=== PATIENT | female | born 1975 | race Two or more races ===

== ENCOUNTER 2023-07-25 13:50 | Outpatient (AMB) | payer MEDICARE, MEDICAID, SELFPAY ==
--- NOTE | 2023-07-25 14:05 | MHC.OFFWIV ---
Intake Vital Signs 07/25/23 14:15 Height 5 ft 1 in Weight 156 lb BMI 29.5 BP 124/78 Blood Pressure Location Lt brachial Position Sitting Pulse 80 Pulse Source Pulse Oximeter Temp 97.8 F Temp Source Temporal Artery Scan Pulse Oximetry (%) 99 Oxygen Delivery Method Room Air Intake Visit Reasons: R[employer] facial allergic reaction headache Intake Note: pt is here today for facial allergic reaction headache started Patient Tobacco Use Status: Never used Tobacco Allergies No Known Allergies Allergy (Verified 07/25/23 14:17) Do you need a note to return to daycare/school/sports/work: No HPI HPI Comments History of Present Illness Details This is a 47-year-old female who presents to the office with right-sided facial swelling x1 day. Patient states she has a history of severe environmental allergies. 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 The patient took some diphenhydramine with moderate relief of her symptoms but she continues to have persistent right-sided facial swelling today. She denies any trouble swallowing, throat swelling, difficulty breathing, chest tightness, or wheezing. REPLACED BY [facility] Social History Patient Tobacco Use Status: Never used Tobacco Review of Systems Const All systems reviewed & are unremarkable except as noted in HPI and below Reports no additional complaints Eyes Reports no additional complaints ENT Reports no additional complaints Card Reports no additional complaints Resp Reports no additional complaints GI Reports no additional complaints Reports no additional complaints Musc Reports no additional complaints Skin/Breast Reports system reviewed and no additional complaints, except as documented Neuro Reports no additional complaints Psych Reports no additional complaints Endo Reports no additional complaints Jaiden/Lymph Reports no additional complaints Aller/Immun Reports no additional complaints Physical Exam Vital Signs: Last Vital Signs Temp 97.8 F 07/25/23 14:15 Pulse 80 07/25/23 14:15 BP 124/78 07/25/23 14:15 Pulse Ox 99 07/25/23 14:15 Oxygen Delivery Method Room Air 07/25/23 14:15 BMI result Body Mass Index 29.5 Const Other: Vital signs reviewed. Constitutional: Non-toxic appearing. No acute distress. Well-developed and well-nourished. HEENT: There is mild swelling of the right periorbital region and right cheek without erythema or urticaria. Normocephalic and atraumatic. No evidence of gingivitis/dental abscess. Skin: Warm and dry. No rashes or lesions noted. Neck: Full and painless range of motion. No cervical lymphadenopathy. Cardio: Regular rate and rhythm. No murmurs, gallops, or rubs. No lower extremity edema. No JVD. Pulmonary: No respiratory distress. No accessory muscle usage. Clear to auscultation bilaterally without wheezing, crackles, or rhonchi. No stridor. Gastrointestinal: Soft, nontender, and nondistended in all 4 quadrants. Musculoskeletal: Normal range of motion in joints throughout the body. No deformity or other signs of injury. Neuro: Alert and oriented x4. Cranial nerves 2-12 grossly intact. No focal deficits appreciated. Psych: Normal mood and affect. Assessment & Plan Assessment & Plan (1) Allergic reaction: Code(s): T78.40XA - Allergy, unspecified, initial encounter Qualifiers: Encounter type: initial encounter Qualified Code(s): T78.40XA - Allergy, unspecified, initial encounter Plan: This is a 47-year-old female presenting to the office complaining of right-sided facial/periorbital swelling secondary to an allergic reaction. Patient has a history of environmental allergies and she is on multiple allergy medications but she started to develop right periorbital/cheek swelling, which improved with diphenhydramine but has not completely resolved. Patient has no sign of an anaphylactic reaction. She has no erythema of the area to suggest periorbital cellulitis. She has no evidence of gingivitis, dental abscess, or other dental issue to explain her facial swelling. The patient very likely has a mild allergic reaction to an unknown trigger. Patient was given a prescription for p.o. prednisone 40 mg daily x5 days as well as p.o. hydroxyzine 50 mg 3 times daily as needed for allergies. She was instructed to continue her daily antihistamines such as fexofenadine or loratadine. Patient was advised to proceed to the emergency room if she were to develop any signs or symptoms of anaphylaxis. Patient verbalizes her understanding and she is in agreement with the plan. Coding Level of Care Code New Pt Level 3 (83044) Diagnoses Allergic reaction, initial encounter T78.40XA Encounter type: initial encounter
[2023-07-25 14:15] VITALS: BP 124/78; PULSE 80; TEMP 36.6; O2SAT 99; BMI 29.5
== END 2023-07-25 16:10 | disposition home or self-care (01) ==
PROVIDERS: Visit Provider Physician Assistant Medical
DX: T78.40XA Allergy, unspecified, initial encounter (principal)
CPT/HCPCS: 99203

== ENCOUNTER 2023-11-25 15:22 | Outpatient (AMB) | payer MEDICARE, MEDICAID, SELFPAY ==
[2023-11-25 15:24] VITALS: BP 122/76; PULSE 86; TEMP 37.3; O2SAT 98
--- NOTE | 2023-11-25 15:24 | MHC.OFFWIV ---
Intake Vital Signs 11/25/23 15:24 Height 5 ft 1 in BP 122/76 Blood Pressure Location Rt brachial Position Sitting Pulse 86 Pulse Source Pulse Oximeter Temp 99.1 F Temp Source Oral Pulse Oximetry (%) 98 Oxygen Delivery Method Room Air Intake Visit Reasons: EP cough chest pain Intake Note: pt is here for cough, difficulty breathing due to emphysema, and asthma Patient Tobacco Use Status: Never used Tobacco Allergies No Known Allergies Allergy (Verified 11/25/23 15:25) Do you need a note to return to daycare/school/sports/work: No HPI EP cough chest pain HPI Details Patient presents for 2 days of increased coughing at night. She has emphysema at baseline which she sees pulmonology for. She notes she has been quite stable with rare use of albuterol no other medications except allergy medications. She has been wearing a mask throughout this pollen season to help protect herself. She denies fever chills productive cough nasal congestion or other symptoms of illness. She notes the cough is worse in the morning and at night. The coughing leads to chest discomfort. COUNTS INCLUDE 234 BEDS AT THE [facility] Social History Patient Tobacco Use Status: Never used Tobacco Review of Systems Const Reports as per HPI and Reports no additional complaints ENT Reports no additional complaints and Reports as per HPI Card Reports as per HPI and Reports no additional complaints Resp Reports as per HPI and Reports no additional complaints Neuro Reports no additional complaints and Reports as per HPI Physical Exam Vital Signs: Last Vital Signs Temp 99.1 F 11/25/23 15:24 Pulse 86 11/25/23 15:24 BP 122/76 11/25/23 15:24 Pulse Ox 98 11/25/23 15:24 Oxygen Delivery Method Room Air 11/25/23 15:24 Const General: cooperative, comfortable and no acute distress Orientation/consciousness: patient oriented x3 HEENT Ears: external ears normal and TM's normal bilaterally General nose exam: Normal external nose present and Normal nasal mucous membranes and turbinates present Face and sinus: Yes sinuses nontender Mouth: oropharynx normal Throat: Yes posterior oropharynx normal Neck Neck: Yes no lymphadenopathy Resp Effort & Inspection: normal respiratory effort Auscultation: clear to auscultation bilaterally Cardio Rate: regular rate Rhythm: regular rhythm Heart sounds: S1 normal heart sound present and S2 normal heart sound present Neuro General: patient oriented x3 Extrem General: Yes no pedal edema Assessment & Plan Assessment & Plan (1) Acute exacerbation of emphysema: Code(s): J43.9 - Emphysema, unspecified Plan: Will treat with a short course of prednisone. Refill albuterol. Return to clinic if symptoms do not improve or consider follow-up with pulmonology sooner as she may need long-acting inhaler. Medications: New albuterol sulfate 90 mcg/actuation (ProAir HFA) 1 inh inhalation Q4-6H PRN 6.7 grams 0RF shortness of breath or wheezing prednisone 20 mg PO DAILY 5 days 5 tabs 0RF Coding Level of Care Code Est Pt Level 3 (20889) Diagnoses Acute exacerbation of emphysema J43.9
== END 2023-11-25 15:41 | disposition home or self-care (01) ==
PROVIDERS: Visit Provider Physician Assistant
DX: J43.9 Emphysema, unspecified (principal)
CPT/HCPCS: 99213

== ENCOUNTER 2023-12-19 12:31 | Outpatient (AMB) | payer MEDICARE, MEDICAID, SELFPAY ==
--- NOTE | 2023-12-19 12:55 | MHC.OFFWIV ---
Intake Vital Signs 12/19/23 12:56 Height 5 ft 1 in Weight 153 lb BMI 28.9 BP 118/74 Blood Pressure Location Lt brachial Position Sitting Pulse 63 Pulse Source Pulse Oximeter Temp 98.4 F Temp Source Oral Pulse Oximetry (%) 98 Oxygen Delivery Method Room Air Intake Visit Reasons: EP ?Allergy Intake Note: pt is here c/o ? allergic reaction. Unknown cause Patient Tobacco Use Status: Never used Tobacco Allergies No Known Allergies Allergy (Verified 12/19/23 12:56) Do you need a note to return to daycare/school/sports/work: No HPI HPI Comments History of Present Illness Details Patient is a 48-year-old female complaining clear watery eye discharge and swelling underneath her eye, it started under her left eye yesterday and seems to be better today but now she is having the same issue with her right eye. She denies any changes in her vision, ear pain, throat pain, cough or fevers. She denies any new soaps, moisturizers or sunscreen. She states she did take some Benadryl yesterday that seemed to help the left eye. She also states she takes a Zyrtec in the morning and cetirizine at night, these are prescribed to her by her park aide as she has emphysema. She denies any feelings of her throat closing up or tickling in the back of her throat [facility] Social History Patient Tobacco Use Status: Never used Tobacco Review of Systems Const All systems reviewed & are unremarkable except as noted in HPI and below Physical Exam Vital Signs: Last Vital Signs Temp 98.4 F 12/19/23 12:56 Pulse 63 12/19/23 12:56 BP 118/74 12/19/23 12:56 Pulse Ox 98 12/19/23 12:56 Oxygen Delivery Method Room Air 12/19/23 12:56 BMI result Body Mass Index 28.9 Const General: cooperative, healthy appearing, comfortable and no acute distress Orientation/consciousness: patient oriented x3 Limitations: no limitations HEENT Head: Yes normal to inspection Ears: external ears normal General nose exam: Normal external nose present, Normal nares present and No nasal discharge present Face and sinus: Yes sinus tenderness (Right-sided maxillary, slight swelling) Mouth: Normal oral and palatal mucosa present, lip normal, tongue normal and moist mucous membranes Throat: Yes posterior oropharynx normal, Yes tonsils normal and Yes uvula midline Eyes Eyelids: Yes eyelids normal Conjunctivae: conjunctivae normal Sclerae: sclerae normal Corneas: corneas normal Pupils: Equal, round and reactive pupils present and Pupils normal by confrontation EOM: EOMs intact bilaterally Neck Neck: Yes normal visual inspection Resp Effort & Inspection: normal respiratory effort and able to speak in complete sentences Skin General skin exam: no rashes or lesions noted Neuro General: patient oriented x3 Cranial nerves: Yes Equal, round and reactive pupils present Extrem General: Yes normal to inspection and Yes no clubbing, cyanosis or edema Assessment & Plan Assessment & Plan (1) Allergic conjunctivitis: Code(s): H10.10 - Acute atopic conjunctivitis, unspecified eye Qualifiers: Laterality: right Qualified Code(s): H10.11 - Acute atopic conjunctivitis, right eye Plan: Recommended Betadine drops and Flonase, gave instruction on how to use Flonase properly. Recommended using Benadryl if she thinks it helps. Advised if she has any tickling in the back of her throat or feelings like her throat is closing up, to go to the emergency department or call 911 immediately. Plan see above Coding Level of Care Code New Pt Level 3 (88746) Diagnoses Allergic conjunctivitis of right eye H10.11 Laterality: right
[2023-12-19 12:56] VITALS: BP 118/74; PULSE 63; TEMP 36.9; O2SAT 98; BMI 28.9
== END 2023-12-19 14:02 | disposition home or self-care (01) ==
PROVIDERS: PCP Internal Medicine; Visit Provider Physician Assistant
DX: H10.11 Acute atopic conjunctivitis, right eye (principal)
CPT/HCPCS: 99203; 99213

== ENCOUNTER 2024-09-18 11:50 | Outpatient (AMB) | payer MEDICARE, MEDICAID, SELFPAY ==
[2024-09-18 11:56] VITALS: BP 100/80; PULSE 76; RESP 16; TEMP 36.8; O2SAT 98; BMI 28.5
--- NOTE | 2024-09-18 11:56 | MHC.OFFWIV ---
Intake Vital Signs 09/18/24 11:56 Height 5 ft 1 in Weight 151 lb BMI 28.5 BP 100/80 Blood Pressure Location Lt brachial Position Sitting Respiration 16 Pulse 76 Pulse Source Pulse Oximeter Temp 98.2 F Temp Source Oral Pulse Oximetry (%) 98 Oxygen Delivery Method Room Air Intake Visit Reasons: EP-Lt ankle pain and swollen Intake Note: Pt is here today c/o Lt ankle pain and swollen: Pt states twisted ankle 3weeks ago: no improvement Patient Tobacco Use Status: Never used Tobacco Allergies No Known Allergies Allergy (Verified 09/18/24 12:16) Medication List - Last Reconciled 09/18/24 by Fidelia Bertrand, [facility]- albuterol sulfate 90 mcg/actuation 1 inh inhalation QID albuterol sulfate 90 mcg/actuation (ProAir HFA) 1 inh inhalation Q4-6H PRN budesonide 90 mcg/actuation (Pulmicort Flexhaler) 2 inhalations inhalation BID cetirizine (All Day Allergy (cetirizine)) 10 mg PO DAILY montelukast 10 mg PO DAILY HPI HPI Comments History of Present Illness Details History - The patient is a 49-year-old female presenting with left ankle pain and swelling. - The patient sustained a left ankle sprain three weeks ago without any improvement. - No x-ray was conducted post-injury as she presumed it a minor twist. - She describes audible popping at the time of injury and localized pain. - Reports increased stiffness and discomfort after periods of rest, such as after sleeping. - Avoidance of analgesics noted in recent days with no current use of anti-inflammatory medications. - Patient observes no other symptoms such as foot involvement beyond the localized ankle issues. Discussion Notes During the visit, I discussed with the patient the current status of her left ankle sprain, which remains painful and swollen three weeks post-injury. I advised an x-ray to assess for any fractures or complications not initially apparent. We discussed the options for managing discomfort and swelling, including using an Antonio wrap or a supportive boot for stabilization. I also recommended a referral to an insurance marketing specialist to evaluate ongoing pain and lack of improvement. I explained the radiology department's timing and the plan for immediate management with a walking boot until further diagnostic imaging could be obtained. Instructions were provided for follow-up post-x-ray to determine further treatment steps, including possible physical therapy or specialist care. Assessment and Plan 1. Left ankle sprain: The patient is recommended for an x-ray to exclude fractures or complications. A walking boot will be provided to aid in stabilization and pain relief. An insurance marketing specialist referral is advised for continued issues. Monitoring post-x-ray results will guide further treatment, potentially including physical therapy. She will be contacted w/ Xray results once available. Patient Instructions - Use a walking boot as directed for left ankle stabilization. - Avoid prolonged weight-bearing activities without the boot. - Follow up with radiology for the x-ray at the scheduled time. - Await contact regarding x-ray results and further instructions. - Seek immediate care if symptoms significantly worsen or new symptoms arise. Consent Patient was informed and verbally consented to the use of an ambient scribe for clinic note documentation during this visit. [facility] Social History Patient Tobacco Use Status: Never used Tobacco Physical Exam Vital Signs: Last Vital Signs Temp 98.2 F 09/18/24 11:56 Pulse 76 09/18/24 11:56 Resp 16 09/18/24 11:56 BP 100/80 09/18/24 11:56 Pulse Ox 98 09/18/24 11:56 Oxygen Delivery Method Room Air 09/18/24 11:56 BMI result Body Mass Index 28.5 Extrem Other: Left ankle: + PP, no erythema or excessive warmth to joint; antalgic gait favoring L ankle, skin intact Left lower extremity: ankle (Left ) Details: tenderness Location: of the lateral malleolus, of the anterior talofibular ligament and anterolaterally, swelling Details: laterally and anteriorly and abnormal ROM Details: pain with active ROM Details: with plantar flexion, with inversion and with eversion and pain with passive ROM Details: with plantar flexion, with dorsiflexion, with inversion and with eversion Assessment & Plan Assessment & Plan (1) Pain and swelling of left ankle: Code(s): M25.572 - Pain in left ankle and joints of left foot; M25.472 - Effusion, left ankle Plan: . Plan . Orders: Orders XR ankle LT min 3V Today M25.472 - Effusion, left ankle, M25.572 - Pain in left ankle and joints of left foot Referrals Orthopedics Referral M25.472 - Effusion, left ankle, M25.572 - Pain in left ankle and joints of left foot Coding Level of Care Code Est Pt Level 4 (21179) Diagnoses Pain and swelling of left ankle M25.572; M25.472
== END 2024-09-18 12:48 | disposition home or self-care (01) ==
LOC: HO.HMCWIC 11:50
PROVIDERS: PCP Internal Medicine; Visit Provider Nurse Practitioner Family
DX: M25.572 Pain in left ankle and joints of left foot (principal); M25.472 Effusion, left ankle

== ENCOUNTER 2024-09-18 11:50 | Outpatient (REF) | payer MEDICARE, MEDICAID, SELFPAY ==
--- NOTE | ~2024-09-18 | XR_ITS ---
CLINICAL HISTORY: M25.572 - Pain in left ankle and joints of left foot 3 view left ankle Comparison: None Findings: No acute fractures or dislocations. No significant arthritic change or erosions. No ankle effusion. No radiopaque foreign body. IMPRESSION: 1. Lateral soft tissue swelling. 2. No acute fracture or dislocation. This document has been electronically signed by: Karena Christianson DO on 09/18/2024 13:51:45
== END 2024-09-18 11:51 | disposition home or self-care (01) ==
LOC: HO.HMGCX 11:50
PROVIDERS: PCP Internal Medicine; Visit Provider Nurse Practitioner Family
DX: M25.572 Pain in left ankle and joints of left foot (principal); M25.472 Effusion, left ankle
CPT/HCPCS: 73610; 99212

== ENCOUNTER → 2024-09-18 13:14 | Outpatient (BNV) | payer MEDICARE, MEDICAID, SELFPAY | PROVIDERS: PCP Internal Medicine; Visit Provider Radiology Diagnostic Radiology | DX: M25.572 Pain in left ankle and joints of left foot (principal) | CPT/HCPCS: 73610 ==

== ENCOUNTER 2024-10-19 10:48 | Outpatient (AMB) | payer MEDICARE, MEDICAID, SELFPAY ==
[2024-10-19 10:57] VITALS: BMI 28.5
--- NOTE | 2024-10-19 10:57 | A.OFFVIS_ITS ---
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 Patient was seen [place] [facility] [place] [facility] on 09/18/24 s/p twisted ankle about 3 weeks prior to visit. X-rays were taken, patient was placed in short walking boot and followed up with PCP who referred to orthopedics. Patient reports she is still having pain on the lateral aspect of the ankle. She states that she d/c the boot today and moved into a supported shoe. Patient mentions that she is having discomfort with movement but it feels better. IMPRESSION: 1. Lateral soft tissue swelling. 2. No acute fracture or dislocation. 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 Ortiz is a 49-year-old female who presents to the office today for evaluation of left ankle injury. She presented to the walk-in urgent care on 09/18/2024 roughly 3 weeks after the initial injury because she continued to have pain and swelling on the lateral aspect of the ankle. She was given a walking boot and instructed to follow up with orthopedics outpatient for further evaluation and treatment. When presenting to the office today she reports that her pain and swelling has been gradually improving but still has some lingering discomfort and notices waxing and waning and swelling. [facility] Social History (Updated 10/19/24 @ 11:05 by Srikanth Philip) Alcohol intake: never Patient Tobacco Use Status: Never used Tobacco Current occupational status: disabled Review of Systems Const All systems reviewed & are unremarkable except as noted in HPI and below Physical Exam Vital Signs: BMI result Body Mass Index 28.5 Const General: cooperative, healthy appearing and no acute distress Resp Effort & Inspection: normal respiratory effort and able to speak in complete sentences Extrem Other: Left ankle: Lateral malleolar [id number] edema accompanied by tenderness to palpation.. Patient is able to demonstrate dorsiflexion, plantar flexion, pronation and supination with mild pain. Negative anterior drawer. Sensation intact. Pedal Pulse intact. Assessment & Plan Assessment & Plan (1) Ankle sprain: Code(s): S93.409A - Sprain of unspecified ligament of unspecified ankle, initial encounter Category: Medical (2) Pain and swelling of left ankle: Code(s): M25.572 - Pain in left ankle and joints of left foot; M25.472 - Effusion, left ankle Category: Medical Plan While the office today, I instructed that the patient can discontinue wearing the boot at this time. She should transition to a supportive walking shoe. I placed an order for physical therapy to begin working on range of motion, gait training and strengthening. She understands that the goal if physical therapy is to help strengthen the ankle to prevent further injury in the future and modalities to treat her current symptoms. I would like to follow up with her in 4 weeks, sooner if needed. X-rays of the left ankle which were obtained while in the office today and were reviewed by me, Pushpa Cruz PA-C, revealed no acute fracture or dislocation. Coding Level of Care Code New Pt Level 3 (69190) Diagnoses Ankle sprain S93.409A Pain and swelling of left ankle M25.572; M25.472
--- OUTSIDE RECORDS SUMMARY | 2024-10-19 12:31 | XMS_ITS | Clinical Summary ---
Author Organization [facility] Address [address] [place] [address] Care Team Providers Care Materials Supervisor Name Role Phone Shadi Munguia MD Primary Care Provider [phone] Allergies No known active allergies Medications No known medications Active Problems No known active problems Social History Tobacco Use Types Packs/Day Years Used Date Smoking Tobacco: Never Smokeless Tobacco: Never Alcohol Use Standard Drinks/Week Comments Never 0 (1 standard drink = 0.6 oz pur e alcohol) Sex and Gender Information Value Date Recorded Sex Assigned at Not on file Gender Identity Not on file Sexual Orientation Not on file Job Start Date Occupation Industry Not on file Not on file Not on file Last Filed Vital Signs Vital Sign Reading Time Taken Comments Blood Pressure 110/64 03/22/2022 4:30 PM EDT Pulse 78 03/22/2022 4:30 PM EDT Temperature 36.4 ??C (97.5 ??F) 03/22/2022 4:15 PM ED T Respiratory Rate 14 03/22/2022 4:30 PM EDT Oxygen Saturation 96% 03/22/2022 4:30 PM EDT Inhaled Oxygen Concentration - - Weight 60.3 kg (133 lb) 03/19/2022 8:36 AM EDT Height 154.9 cm (5' 1 ) 03/19/2022 8:36 AM EDT Body Mass Index 25.13 03/19/2022 8:36 AM EDT Plan of Treatment Not on file Care Teams Materials Supervisor Relationship Specialty Start Date End Date Shadi Munguia MD [address] [place] [id number] PCP - General Internal Medicine 03/11/22
--- OUTSIDE RECORDS SUMMARY | 2024-10-19 12:31 | XMS_ITS | Encounter Summary ---
Author Organization [facility] Address [address] [place] [address] Care Team Providers Care Wood Filler Name Role Phone Shadi Munguia MD Primary Care Provider [phone] Reason for Referral * Consultation (Routine) - Closed Specialty Diagnoses / Procedures Referred By Contac t Referred To Contact Orthopaedics Diagnoses Sprain of ankle, unspecified laterality, unspecified ligament, initial encounter Shadi Munguia MD [address] [place] [id number] Phone: tel: fax: [facility]. Orthopedics [address] [place] [address] Reyes Banegas. [address] [place], [place] Phone: tel: Referral ID Status Reason Start Date Expiration Date V isits Requested Visits Authorized [id number] Closed Specialty Services Required 10/04/2024 10/04/2025 1 1 Reason for Visit * Reason Onset Date Comments Referral 10/04/2024 Encounter Details Date Type Department Care Team (Late st Contact Info) Description 10/04/2024 Telephone [facility] [address] [place] [phone] Shadi Munguia MD [address] [place] [phone] Referral Social History Tobacco Use Types Packs/Day Years Used Date Smoking Tobacco: Never Smokeless Tobacco: Never Alcohol Use Standard Drinks/Week Comments No 0 (1 standard drink = 0.6 oz pur e alcohol) Interpersonal Safety Answer Date Record ed Physical Abuse 09/23/2024 Verbal Abuse 09/23/2024 Comments No Sex and Gender Information Value Date Recorded Sex Assigned at Female 09/22/2024 10:55 AM EDT Legal Sex Female 1:34 AM EST Gender Identity Female 09/22/2024 10:55 AM EDT Sexual Orientation Straight 09/22/2024 10 :58 AM EDT documented as of this encounter Progress Notes * Tiffanie Rahman MA - 10/05/2024 10:09 AM EDT Pt informed. * Shadi Munguia MD - 10/04/2024 5:55 PM EDT Referral signed * Phyllis Salazar MA - 10/04/2024 3:39 PM EDT Seen at [facility], referral pending. * Regina Linder - 10/04/2024 3:29 PM EDT Referral Request: What insurance does the patient have today? [employer] Referrals cannot be processed if the insurance is not accurate. If the insurance listed above in red is NO BILLING INFORMATION FOUND FOR THIS ENCOUTNER The patients correct insurance must be obtained and registered in [facility] or their referral can not be processed. Who is calling to request this referral? Pt If the caller is not the patient, what is their name? 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 If YES, when? No Have you checked REVIEW or the APPT DESK to see if this referral has already been done or has visits left? yes Is this visit: Initial Visit Address of Specialist: unknown Phone # of Specialist: unknown Fax #: (if applicable): unknown Does patient have an appointment scheduled?: no Date of appointment- (including a retro-request): n/a Is this appointment related to: n/a documented in this encounter Plan of Treatment Upcoming Encounters Date Type Department Care Team ([facility] st Contact Info) Description 10/25/2024 9:45 AM EDT Office Visit Internal Medicine - [facility] [address] [place] [phone] Shadi Munguia MD [address] [place] [address] 11/11/2024 10:20 AM EDT Office Visit [facility] [address] [place] [address] [address] [place] [phone] Rodger Tenorio MD [address] [place] [address] Dr [address] [place] [address] 12/02/2024 2:30 PM EDT Appointment [facility] [address] [place] [phone] Jose Frey MD [address] [facility] [address] [place] [address] 12/08/2024 1:20 PM EDT Appointment Radiology Department - [address] [phone] Scheduled Referrals Name Type Priority Associated Diagnoses Order Schedule Ambulatory referral to Orthopedic Outpatient Referral Routine Sprain of ankle, unspecified laterality, unspecified ligament, initial encounter 1 Occurrences starting 10/04/2024 until 10/04/2025 documented as of this encounter Visit Diagnoses Diagnosis Sprain of ankle, unspecified laterality, unspecified ligament, initial encounter- Primary Encounter for screening mammogram for breast cancer documented in this encounter Care Teams Wood Filler Relationship Specialty Start Date End Date Shadi Munguia MD [address] [place] [phone] PCP - General Internal Medicine 08/03/24 documented as of this encounter
--- OUTSIDE RECORDS SUMMARY | 2024-10-19 12:31 | XMS_ITS | Clinical Summary ---
Author Organization [facility] Address [address] [place] [address] Phone Care Team Providers Care Lever Operator Name Role Phone Shadi Munguia MD Primary Care Provider [phone] Allergies Active Allergy Reactions Criticality Noted Date Comments Other Rash 09/15/2024 Tegaderm Medications simvastatin (ZOCOR) 20 mg tablet Take 1 tablet (20 mg total) by mouth at bedtime. for 180 days 4 Active butalbital-acet aminophen-caffe ine (FIORICET, ESGIC) 50-325-40 mg per tablet Take 1 tablet with acute onset of migraine, may repeat after 2 to 4 hours if needed 4 Active albuterol HFA (PROAIR HFA ; PROVENTIL HFA ; VENTOLIN HFA) 90 mcg/actuation inhaler Inhale 2 puffs by mouth every 6 (six) hours if needed for shortness of breath or wheezing (Cough). 4 04/01/20 25 Active LORazepam (ATIVAN) 0.5 mg tablet Take 2 Tablets by mouth See Admin Instructions. Take 1 tablet 30min before procedure, May repeat another tablet after 30min if needed 4 Active montelukast (SINGULAIR) 10 mg tablet Take 1 tablet (10 mg total) by mouth at bedtime. 4 Active triamcinolone (KENALOG) 0.025 % cream APPLY TO ARMS AND HANDS TWICE DAILY NEEDED FOR FLARES 3 Active Pulmicort Flexhaler 90 mcg/actuation inhaler Inhale 2 puffs by mouth 2 (two) times a day. 3 each 3 5 09/02/19 26 Active bisacodyL (DULCOLAX) 5 mg EC tablet Take 2 tablets by mouth right before beginning bowel prep. See instructions provided by the office 2 tablet 5 Active polyethylene glycol (Golytely) 236-22.74-6.74 -5.86 gram solution Take 4L by mouth once for one dose. May substitue any PEG. Starting at 6PM the night before your procedure drink 1 8oz glasses at your own pace until you complete half of the gallon. Finish 2nd half of the gallon 5 hours before your procedure. 4000 mL 5 Active Active Problems Problem Noted Date Diagnosed Date HLD (hyperlipidemia) 04/15/2024 Other chest pain 06/04/2021 Overview (08/03/2024): Last Assessment & Plan: The exact etiology for this patient's chest pain is not clear. This somewhat atypical for ischemic heart disease. She did have an ECG in March which demonstrated slight T wave abnormality in lead V2 V3. Have a stress echocardiogram in March 2020. At time she had exercised about 8 minutes to greater than 85% predicted rate. That time she had no ECG or echocardiographic evidence for ischemia. Signout I do not think her symptoms are ischemic mediated I will set her up for another stress test. However I did tell her she had a chest discomfort that lasted over 10 minutes call 911. PLMD (periodic limb movement disorder) 8 Overview (08/03/2024): 4.2017 diagnostic polysomnogram revealed PLMD but not JEANNETTE MONET positive 09/18/2017 Centrilobular emphysema (CMS/HCC V24, CMS/HCC V2 8) 09/18/2017 Raynaud phenomenon 06/24/2017 Degenerative arthritis 05/02/2017 Uterine pain 05/02/2017 Overview (08/03/2024): Underwent laparotomy with total abdominal hysterectomy, right salpingo- oophorectomy and left salpingectomy on 05/22/17 for pelvic pain, endometriosis, right hydrosalpinx COPD (chronic obstructive pu lmonary disease) ([facility] V24, [facility] V28) 02/27/2017 Overview (08/03/2024): Alpha-1 low Fibromyalgia 02/27/2017 Heart murmur 02/27/2017 Migraines 02/27/2017 Overview (08/03/2024): CT head (06/05/18) done in ER showed 3-4 4 mm hypodensity at the right basal ganglia which may represent mineralization or acute hemorrhage. Encounters Date Type Department Care Team Description 10/04/2024 Telephone Gastroenterology - [place] [address] [facility] [address] [facility] [address] [place] [address] Umesh Lowe MD special procedure 10/04/2024 Telephone Internal Medicine - [place] [address] [place] [phone] Shadi Munguia MD Referral 09/23/2024 1:42 PM EDT Anesthesia Event [facility] [address] [place] [address] Solomon Pineda MD 09/23/2024 11:47 AM EDT - 09/23/2024 11:59 PM EDT Hospital Encounter [facility] [address] [place] [address] Umesh Lowe MD Steele, Matthew G, CRNA Saliga, Jesse L, MD Colon cancer screening Discharge Disposition: Home or Self Care from Last 3 Months Immunizations Name Administration Dates Next Due Influenza Quadravalent, MDCK , 0.5ml, with preservative (Flucelvax) 6mo and older 02/27/2017 Td Tetanus diptheria (Tdvax) 7yo and older 11/22 Surgical History Surgery Date Site/Laterality Comments CHOLECYSTECTOMY PROCEDURE:CHOLECYSTECTOMY HYSTERECTOMY PROCEDURE:HYSTERECTOMY OTHER SURGICAL HISTORY 03/22/2022 N/A PROCEDURE:PANNICULECTOMY;COMMENT :Procedure: ABDOMINOPLASTY; Surgeon: Saw Giordano MD; Location: [facility] MAIN OPERATING ROOM; Service: Plastics; Laterality: N/A; BREAST SURGERY 03/22/2022 Bilateral PROCEDURE:REDUCTION MAMMAPLASTY;COMMENT:Procedure: BILATERAL BREAST REDUCTION; Surgeon: Saw Giordano MD; Location: [facility] MAIN OPERATING ROOM; Service: Plastics; Laterality: Bilateral; LIPOSUCTION 03/22/2022 Bilateral PROCEDURE:LIPOSUCTION;COMMENT:Pr ocedure: LIPOSUCTION ANTERIOR/POSTERIOR FLANKS; Surgeon: Saw Giordano MD; Location: [facility] MAIN OPERATING ROOM; Service: Plastics; Laterality: Bilateral; CHOLECYSTECTOMY 2012 PROCEDURE: LAPAROSCOPIC CHOLECYSTECT ENDOMETRIAL ABLATION 08/2015 PROCEDURE: NM ENDOMETRIAL ABLTJ THERMAL W/O HYSTEROSCOPIC GUID COLONOSCOPY PROCEDURE: HISTORICAL COLONOSCOPY ESOPHAGOGASTRODUODENOSCOPY PROCEDURE: NM ESOPHAGOGASTRODUODENOSCOPY TRANSORAL DIAGNOSTIC PARTIAL HYSTERECTOMY 05/22/2017 PROCEDURE: NM SUPRACERVICAL ABDL HYSTER W/WO RMVL TUBE OVARY; COMMENT: left ovary preserved BREAST REDUCTION PROCEDURE: NM BREAST REDUCTION Medical History Medical History Date Comments PONV (postoperative nausea and vomiting) DX:PONV (postoperative nausea and vomiting) Emphysema of lung (CMS/HCC V 24, CMS/HCC V28) DX:Emphysema of lung ([facility]) Migraine headache DX:Migraine he adache;COMMENT:hx Aaron's disease DX:Aaron 's disease Migraines 02/27/2017 DX:Migraines Emphysema lung (CMS/HCC V24, CMS/HCC V28) 02/27/2017 DX:Emphysema lung (HCC) Fibromyalgia 02/27/2017 DX:Fibromyalgia Heart murmur 02/27/2017 DX:Heart murmur Aaron's disease DX:Aaron 's disease Asthma Family History Medical History Relation Name Comments Hypertension Brother 2 Hypertension Father Heart attack Maternal Grandfather Diabetes Maternal Grandmother Heart attack Maternal Grandmother Hypertension Maternal Grandmother Hypertension Mother Other: IDDM Son 1 diagnosed age 1 2 Breast cancer Neg Hx Colon cancer Neg Hx Ovarian cancer Neg Hx Relation Name Status Comments Brother 2 Alive Father Alive Maternal Grandfather Maternal Grandmother Mother Alive Son 1 Alive Son 2 Alive Social History Tobacco Use Types Packs/Day Years [...] Orientation Straight 09/22/2024 10 :58 AM EDT Obstetrics History Last Filed Vital Signs Vital Sign Reading Time Taken Comments Blood Pressure 106/55 09/23/2024 2:21 PM EDT Pulse 76 09/23/2024 2:21 PM EDT Temperature 36.9 ??C (98.4 ??F) 09/23/2024 2:01 PM ED T Respiratory Rate 18 09/23/2024 2:21 PM EDT Oxygen Saturation 100% 09/23/2024 2:21 PM EDT Inhaled Oxygen Concentration - - Weight 68.5 kg (151 lb) 09/23/2024 1:11 PM EDT Height 154.9 cm (5' 1 ) 09/23/2024 1:11 PM EDT Body Mass Index 28.53 09/23/2024 1:11 PM EDT Plan of Treatment Upcoming Encounters Date Type Department Care Team (Late st Contact Info) Description 10/25/2024 9:45 AM EDT Office Visit Internal Medicine - [facility] [address] [place] [address] Shadi Munguia MD [address] [place] [address] 11/11/2024 10:20 AM EDT Office Visit [facility] [address] [facility] [address] [place] [phone] Rodger Tenorio MD [address] [place] [address] [address] [place] [address] 12/02/2024 2:[address] [facility]oscopy [address] [place] [phone] Jose Frey MD [address] [facility] [address] [place] [address] 12/08/2024 1:20 PM EDT Appointment Radiology Department - [address] [address] Health Maintenance Due Date Last Done Comments Hepatitis B Vaccines (1 of 3 - 19+ 3-dose series) 1996 Pneumococcal Vaccine: Pediatrics (0 to 5 Years) and At-Risk Patients (6 to 64 Years) (1 of 2 - PCV) 1996 Cervical Cancer Screening: Pap Smear 02/26/2020 02/25/2017, 02/25/2017 Depression Screening 06/01/2022 Medicare Annual Wellness Visit 06/01/2022 Social Influencers of Health Screening 06/01/2022 COVID-19 Vaccine ( season) 2024 03/15/2021, 02/22/2021 Influenza Vaccine (Season Ended) 2025 02/27/2017 Breast Cancer Screening 02/02/2026 02/03/20 24, 02/03/2024, 01/05/2024, Additional history exists Cholesterol Screening (Lipid Panel) 06/14/2029 06/14/2024, 04/12/2024 DTaP,Tdap,and Td Vaccines (2 - Td or Tdap) 11/22/2032 11/22/2022 Colorectal Cancer Screening: Colonoscopy 09/23/2034 09/23/2024 HIV Screening Completed 02/25/2017 Hepatitis C Screening Completed 02/25/2017 HIB Vaccines Aged Out No longer eligi ble based on patient's age to complete this topic HPV Vaccines Aged Out No longer eligi ble based on patient's age to complete this topic Hepatitis A Vaccines Aged Out No long er eligible based on patient's age to complete this topic IPV Vaccines Aged Out No longer eligi ble based on patient's age to complete this topic MMR Vaccines Aged Out No longer eligi ble based on patient's age to complete this topic Meningococcal ACWY Vaccine Aged Out N o longer eligible based on patient's age to complete this topic Meningococcal B Vaccine Aged Out No l onger eligible based on patient's age to complete this topic RSV Immunization Patients Under 20 months Aged Out No longer eligible based on patient's age to complete this topic Varicella Vaccines Aged Out No longer eligible based on patient's age to complete this topic Procedures Procedure Name Priority Date/Time Associated Diagnosis Comments COLONOSCOPY Routine 09/23/2024 2:00 PM EDT Colon cancer screening LIPID PANEL WITH REFLEX TO DIRECT LDL Routine 06/14/2024 12:46 PM EST Hyperlipemia DX MAMMO INCL CAD UNI Routine 02/03/2024 2:14 PM EDT Other abnormal and inconclusive findings on diagnostic imaging of breast HEPATITIS C SCREENING Routine 02/25/2017 HIV SCREENING Routine 02/25/2017 HPV Routine 02/25/2017 from Last 3 Months or Most Recently Relevant to Health Maintenance Results * COLONOSCOPY Anesthesia - MAC; [facility] ENDOSCOPY (09/23/2024 2:00 PM EDT) Anatomical Region Laterality Modality Endoscopy 09/23/2024 1:42 PM EDT Impressions 09/23/2024 1:59 PM EDT - No specimens collected. Recommendation: ?- Discharge patient to home. ? - Repeat colonoscopy at the next available appointment ? for screening purposes and because the bowel ? preparation was suboptimal. Narrative 09/23/2024 1:[address] [facility] GI Patient Name: Javi Ortiz Procedure Date: 09/23/2024 1:42 PM Date of : 1975 Age: 49 Gender: Female Note Status: Finalized Attending MD: Umesh Lowe MD, Procedure Date No Time: 09/23/2024 Procedure: ? Colonoscopy Indications: ? Screening for colorectal malignant neoplasm Providers: ? Umesh Lowe MD Referring MD: ?Umesh Lowe MD Medicines: ? Monitored Anesthesia Care Complications: ? No immediate complications. Estimated blood loss: None. Estimated Blood Loss: ? Estimated blood loss: none. Procedure: ? Pre-Anesthesia Assessment: ? - Prior to the procedure, a History and Physical was ? performed, and patient medications and allergies were ? reviewed. The patient is competent. The risks and ? benefits of the procedure and the sedation options and ? risks were discussed with the patient. All questions ? were answered and informed consent was obtained. ? Patient identification and proposed procedure were ? verified by the physician, the nurse, the crossbar frame wirer ? and the coal gasification technician in the pre-procedure area in the ? endoscopy suite. Mental Status Examination: alert and ? oriented. Airway Examination: normal oropharyngeal ? airway and neck mobility. Respiratory Examination: ? clear to auscultation. CV Examination: normal. ? Prophylactic Antibiotics: The patient does not require ? prophylactic antibiotics. Prior Anticoagulants: The ? patient has taken no anticoagulant or antiplatelet ? agents. ASA Grade Assessment: II - A patient with mild ? systemic disease. After reviewing the risks and ? benefits, the patient was deemed in satisfactory ? condition to undergo the procedure. The anesthesia ? plan was to use monitored anesthesia care (MAC). ? Immediately prior to administration of medications, ? the patient was re-assessed for adequacy to receive ? sedatives. The heart rate, respiratory rate, oxygen ? saturations, blood pressure, adequacy of pulmonary ? ventilation, and response to care were monitored ? throughout the procedure. The physical status of the ? patient was re-assessed after the procedure. ? After I obtained informed consent, the scope was ? passed under direct vision. Throughout the procedure, ? the patient's blood pressure, pulse, and oxygen ? saturations were monitored continuously. The ? Colonoscope was introduced through the anus with the ? intention of advancing to the cecum. The scope was ? advanced to the ascending colon before the procedure ? was aborted. Medications were given. The colonoscopy ? was performed without difficulty. The patient ? tolerated the procedure well. The quality of the bowel ? preparation was fair except the ascending colon was ? poor. Findings: ?The perianal and digital rectal examinations were ? normal. Procedure Code(s): ? --- Professional --- ? G0121, 53, Colorectal cancer screening; colonoscopy on ? individual not meeting criteria for high risk Diagnosis Code(s): ? --- Professional --- ? Z12.11, Encounter for screening for malignant neoplasm ? of colon CPT copyright 2020 [employer]. All rights reserved. The codes documented in this report are preliminary and upon medical office receptionist review may be revised to meet current compliance requirements. Umesh Lowe MD 09/23/2024 1:59:25 PM This report has been signed electronically.Umesh Lowe MD Number of Addenda: 0 Note Initiated On: 09/23/2024 1:42 PM Scope In: 1:48:11 PM Scope Out: 1:52:03 PM ? Endoscopy Department at [facility] - [address] [place] [address], ? [place] [address] Procedure Note Umesh Lowe MD - 09/23/2024 [facility] Patient Name: Javi Ortiz Procedure Date: 09/23/2024 1:42 PM Date of : 1975 Age: 49 Gender: Female Note Status: Finalized Attending MD: Umesh Lowe MD, Procedure Date No Time: 09/23/2024 Procedure: Colonoscopy Indications: Screening for colorectal malignant neoplasm Providers: Umesh Lowe MD Referring MD: Umesh Lowe MD Medicines: Monitored Anesthesia Care Complications: No immediate complications. Estimated blood loss:None. Estimated Blood Loss: Estimated blood loss: none. Procedure: Pre-Anesthesia Assessment: - Prior to the procedure, a History and Physicalwas performed, and patient medications and allergieswere reviewed. The patient is competent. The risks and benefits of the procedure and the sedation optionsand risks were discussed with the patient. Allquestions were answered and informed consent was obtained. Patient identification and proposed procedure were verified by the physician, the nurse, theanesthetist and the coal gasification technician in the pre-procedure area in the endoscopy suite. Mental Status Examination: alertand oriented. Airway Examination: normal oropharyngeal airway and neck mobility. Respiratory Examination: clear to auscultation. CV Examination: normal. Prophylactic Antibiotics: The patient does notrequire prophylactic antibiotics. Prior Anticoagulants: The patient has taken no anticoagulant or antiplatelet agents. ASA Grade Assessment: II - A patient withmild systemic disease. After reviewing the risks and benefits, the patient was deemed in satisfactory condition to undergo the procedure. The anesthesia plan was to use monitored anesthesia care (MAC). Immediately prior to administration of medications, the patient was re-assessed for adequacy to receive sedatives. The heart rate, respiratory rate, oxygen saturations, blood pressure, adequacy of pulmonary ventilation, and response to care were monitored throughout the procedure. The physical status ofthe patient was re-assessed after the procedure. After I obtained informed consent, the scope was passed under direct vision. Throughout theprocedure, the patient's blood pressure, pulse, and oxygen saturations were monitored continuously. The Colonoscope was introduced through the anus withthe intention of advancing to the cecum. The scope was advanced to the ascending colon before theprocedure was aborted. Medications were given. Thecolonoscopy was performed without difficulty. The patient tolerated the procedure well. The quality of thebowel preparation was fair except the ascending colon was poor. Findings: The perianal and digital rectal examinations were normal. Procedure Code(s): --- Professional --- G0121, 53, Colorectal cancer screening; colonoscopyon individual not meeting criteria for high risk Diagnosis Code(s): --- Professional --- Z12.11, Encounter for screening for malignantneoplasm of colon CPT copyright 2020 [employer]. All rights reserved. The codes documented in this report are preliminary and upon medical office receptionist reviewmay be revised to meet current compliance requirements. Umesh Lowe MD 09/23/2024 1:59:25 PM This report has been signed electronically.Umesh Lowe MD Number of Addenda: 0 Note Initiated On: 09/23/2024 1:42 PM Scope In: 1:48:11 PM Scope Out: 1:52:03 PM Endoscopy Department at [facility] - [address] [place] [phone] IMPRESSION: - No specimens collected. Recommendation: - Discharge patient to home. - Repeat colonoscopy at the next availableappointment for screening purposes and because the bowel preparation was suboptimal. us Umesh Lowe MD GI~PROCEDURE ORDERABLES Fin al Result * (ABNORMAL) Lipid panel with reflex to direct LDL (06/14/2024 12:46 PM EST) Cholesterol 197 0 - 200 mg/dL LAB CHEMISTRY METHOD 06/14/2024 4:[address] [facility] Triglycerides 104 0 - 150 mg/dL LAB CHEMISTRY METHOD 06/14/2024 4:[address] [facility] HDL 50 >=40 mg/dL LAB CHEMISTRY METHOD 06/14/2024 4:[address] [facility] LDL Calculated 126(H) 0 - 100 mg/dL LAB CHEMISTRY METHOD 06/14/2024 4:[address] [facility] VLDL Cholesterol Alvin 20.8 mg/dL LAB CHEMISTRY METHOD 06/14/2024 4:[address] [facility] Non HDL Chol. (LDL+VLDL) 147(H) <145 mg/dL LAB CHEMISTRY METHOD 06/14/2024 4:[address] [facility] Chol/HDL Ratio 3.9 0.0 - 4.4 LAB CHEMISTRY METHOD 06/14/2024 4:[address] [facility] Blood Venous blood specimen / Unknown Venipuncture / Unknown 06/14/2024 12:46 PM EST 06/14/2024 12:46 PM EST us Shadi Munguia MD LAB BLOOD ORDERABLES Mima l Result [facility] [address] [place] [address], [place] [phone] * DX MAMMO INCL CAD UNI (02/03/2024 2:14 PM EDT) Anatomical Region Laterality Modality Mammography 01/06/2024 8:49 AM EDT Narrative 02/09/2024 8:22 AM EDT Pathology results are as follows: LEFT BREAST, UPPER OUTER, STEREOTACTIC CORE BIOPSY: FAT NECROSIS AND FIBROSIS WITH DYSTROPHIC CALCIFICATIONS NO ATYPIA OR NEOPLASM IDENTIFIED Pathology results are benign and concordant with the imaging findings. ??They could be related to the history of previous reduction mammoplasty in 2021. ??Patient may return to routine screening mammogram expected in November 2024. Voicemail message with pathology results was left by Dr. Peñaloza at 4:30 PM on February 06, 2024. Addendum created to add the information in regards to the size of the targeted group of calcifications: The target group of calcifications span an area of 1.1 cm long. PROCEDURE (S): ??NM BX BREAST W/DEVICE 1ST LESION STEREOTACTIC GUID, DX MAMMO INCL CAD UNI History: Patient is status post left breast diagnostic mammogram on January 05, 2024 that recommended stereotactic needle core biopsy of calcifications in the upper-outer quadrant at about 5 cm from the nipple. The procedure was explained to the patient including benefits and alternatives. The risks, including but not limited to infection and bleeding, were reviewed and the patient agreed to undergo the procedure, signing the consent form. Left stereotactic core biopsy: The patient's left breast was positioned in the Affirm upright biopsy system ([employer]) and images of the calcifications in the upper outer quadrant were obtained. The breast was prepped for the procedure and the area was anesthetized with a local anesthetic 15 cc of lidocaine 1% buffered with Sodium Bicarbonate 4.2% (9cc: 1cc) superficially and deeper. ??Using a [employer] Brevera Biopsy System with Brevera 9G standard needle probe, one pass was made through the area from lateral approach, and 5 specimens were obtained. Specimen radiograph confirms calcifications in multiple specimens. A [employer] SecurMark for Eviva Top Hat shape titanium ([id number]) tissue marker was placed at the site of the core biopsy. The needle was then removed and adequate hemostasis was achieved. Estimated blood loss: Minimal The patient experienced no complications during the procedure. Patient was moved to another unit and unilateral left digital mammogram confirms tissue marker in satisfactory position. IMPRESSION: IMPRESSION: Left stereotactic core biopsy of calcifications in the upper quadrant middle depth completed. Awaiting pathology results. Concordance addendum will be generated when pathologic analysis is complete. Procedure Note Terri Pastor MD - 04/07/2024 Pathology results are as follows: LEFT BREAST, UPPER OUTER, STEREOTACTIC CORE BIOPSY: FAT NECROSIS AND FIBROSIS WITH DYSTROPHIC CALCIFICATIONS NO ATYPIA OR NEOPLASM IDENTIFIED Pathology results are benign and concordant with the imaging findings.They could be related to the history of previous reduction mammoplasty in 2021. Patient mayreturn to routine screening mammogram expected in November 2024. Voicemail message with pathology results was left by Dr. Peñaloza at 4:30PM on February 06, 2024. Addendum created to add the information in regards to the size of thetargeted group of calcifications: The target group of calcifications span an area of 1.1 cm long. PROCEDURE (S): NM BX BREAST W/DEVICE 1ST LESION STEREOTACTIC GUID, DXMAMMO INCL CAD UNI History: Patient is status post left breast diagnostic mammogram on 2023 that recommended stereotactic needle core biopsy of calcifications in theupper-outer quadrant at about 5 cm from the nipple. The procedure was explained to the patient including benefits andalternatives. The risks, including but not limited to infection and bleeding, were reviewed and thepatient agreed to undergo the procedure, signing the consent form. Left stereotactic core biopsy: The patient's left breast was positioned in the Affirm upright biopsysystem ([employer]) and images of the calcifications in the upper outer quadrant were obtained.The breast was prepped for the procedure and the area was anesthetized with a local anesthetic 15cc of lidocaine 1% buffered with Sodium Bicarbonate 4.2% (9cc: 1cc) superficially and deeper.Using a [employer] Brevera Biopsy System with Brevera 9G standard needle probe, one pass wasmade through the area from lateral approach, and 5 specimens were obtained. Specimen radiographconfirms calcifications in multiple specimens. A [employer] SecurMark for Eviva TopHat shape titanium ([id number]) tissue marker was placed at the site of the corebiopsy. The needle was then removed and adequate hemostasis was achieved. Estimated blood loss: Minimal The patient experienced no complications during the procedure. Patient was moved to another unit and unilateral left digital mammogramconfirms tissue marker in satisfactory position. IMPRESSION: IMPRESSION: Left stereotactic core biopsy of calcifications in the upper quadrantmiddle depth completed. Awaiting pathology results. Concordance addendum will be generated when pathologic analysis iscomplete. Alisha Mc LOGISTICS ENGINEER IMG BI PROCEDURES Edited Resul t - Final * Cervical Cancer Screening: HPV (02/25/2017) Pathologist [facility] Cervical Cancer Screening: HPV Abstracted, Negative Result [facility] Historical Provider MD HEALTH MAINTENANCE Final Result * HIV Screening (02/25/2017) Pathologist [facility] HIV Screening Abstracted Historical Provider MD HEALTH MAINTENANCE Final Result * Hepatitis C Screening (02/25/2017) [facility] Hepatitis C Screening Abstracted Historical Provider MD HEALTH MAINTENANCE Final Result from Last 3 Months or Most Recently Relevant to Health Maintenance Insurance [place] - [place] MEDICARE Advance Directives Documents on File Type Date Recorded Patient Manager Performance Expl anation Health Care Decision (hx) 05/22/2017 AD PEREZ DIRECTIVE Health Care Decision (hx) 05/22/2017 AD PEREZ DIRECTIVE Health Care Decision (hx) 05/22/2017 AD PEREZ DIRECTIVE Health Care Decision (hx) 05/22/2017 AD PEREZ DIRECTIVE Health Care Decision (hx) 05/22/2017 AD PEREZ DIRECTIVE Health Care Decision (hx) 05/22/2017 AD PEREZ DIRECTIVE Health Care Decision (hx) 05/22/2017 AD PEREZ DIRECTIVE Health Care Decision (hx) 05/22/2017 AD PEREZ DIRECTIVE Health Care Decision (hx) 05/22/2017 AD PEREZ DIRECTIVE 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
== END 2024-10-19 11:35 | disposition home or self-care (01) ==
LOC: HO.HOS 10:49
PROVIDERS: PCP Internal Medicine; Visit Provider Physician Assistant
DX: S93.402A Sprain of unspecified ligament of left ankle, initial encounter (principal); M25.572 Pain in left ankle and joints of left foot; M25.472 Effusion, left ankle
CPT/HCPCS: 99203

== ENCOUNTER → 2024-10-19 10:48 | Outpatient (BNVA) | payer MEDICARE, MEDICAID, SELFPAY | PROVIDERS: PCP Internal Medicine; Visit Provider Physician Assistant | DX: M25.572 Pain in left ankle and joints of left foot (principal); M25.472 Effusion, left ankle; S93.402A Sprain of unspecified ligament of left ankle, initial encounter; X58.XXXA Exposure to other specified factors, initial encounter; Y93.9 Activity, unspecified; Y92.9 Unspecified place or not applicable; Y99.9 Unspecified external cause status | CPT/HCPCS: 99202 ==

== ENCOUNTER 2024-12-20 13:00 | Outpatient (RCR) | payer OTHER, SELFPAY ==
--- NOTE | 2024-11-22 14:38 | MHC.PT.EP ---
[facility] [place] Office [place] Office [place] Office [address] Aki Howell [address] [phone] F: [phone] F: [phone] F: [phone] F: [phone] Physical Therapy Plan of Care Date of Evaluation: 11/22/24 Date of Surgery: Diagnosis: This is a 49 yo female presenting to skilled PT with a script for pain and swelling L ankle/sprain. Assessment: This is a 49 yo female presenting to skilled PT with a script for pain and swelling L ankle/sprain. Patient reporting that she has low balance in general but she was walking in her house and her ankle gave way causing her foot to roll in (in August this year). She reported that she heard pop/crack when it happened and she had swelling. She went to the walk-in where she was given a boot/had xrays and was referred to ortho where she was given a lace up ASO. Last ortho note: While the office today, I instructed that the patient can discontinue wearing the boot at this time. She should transition to a supportive walking shoe. I placed an order for physical therapy to begin working on range of motion, gait training and strengthening. She understands that the goal if physical therapy is to help strengthen the ankle to prevent further injury in the future and modalities to treat her current symptoms. I would like to follow up with her in 4 weeks, sooner if needed. She does not have anything scheduled to follow up with them just yet/she was waiting for PT schedule. She continues to have lateral ankle swelling and pain that is also located laterally as well. She has constant pain but it is worse with weight bearing; standing and walking. Assessment reveals pain that ranges from up to a 4/10 at the worst. Patient demos decreased ankle ROM, strength of B LE's, TTP at lateral ankle malleoli with noted swelling and impaired gait and balance. Based on functional limitations, impaired QOL and pain tolerance patient is a good candidate for skilled PT 2x/wk for 4wks. Frequency and Duration: The patient will be seen 2x/wk for 4wks Short Term Goals: (in 2 weeks) Patient will improve ankle AROM by at least 5 degs without assist or pain Patient will be I in HEP Patient will understand the importance of proper footwear for healing Prison Goals: (in 4 weeks) Patient will report 75% improvement in balance and strength of LLE as evidenced by reports no of falls, pain or buckling in LE Patient will improve LEFs by 10 points Patient will demo WFL AROM of hip, knee and ankle Patient will demo proper squat and lift techniques without increase in pain Patient will be able to walk without much deviations or pain for at least 30 mins Treatment Plan: Modalities to reduce pain, spasms and effusion. Manual therapy to restore motion and function. Therapeutic exercise to improve strength and flexibility. Neuromuscular re-education for posture and balance. Therapeutic activities to return to functional activities of daily living. Electronically signed by: Ana Null PT Please sign and return to therapist. Thank you for your referral.
--- NOTE | 2025-01-18 09:27 | MHC.PT.DC ---
[facility] [place] Office [place] Office [place] Office [address] Aki Howell [address] [phone] F: [phone] F: [phone] F: [phone] F: [phone] Physical Therapy Discharge Report Diagnosis: This is a 49 yo female presenting to skilled PT with a script for pain and swelling L ankle/sprain. Date of Surgery: Date of Evaluation: 11/22/24 Date of Discharge: 01/18/25 Treatments to Date: 8 Cancellations to Date: 0 No Shows to Date: 0 Discharge Status: Independent with [facility] Recommend MD Follow-up Discharge Summary: Patient has come to 8 sessions of PT. We have tried manual massage, joint mobs, AROM, strengthening, balance, KT and tens. Pain and swelling remain about the same. At this time I placed her on a hold and she sees ortho next week. ? referrals for further imaging or pain management may be needed. DC to [facility] after 30 days of being on a PT hold and not being at the facility. Electronically signed by: Ana Null PT Please sign and return to therapist. Thank you for your referral.
== END 2025-01-18 09:27 | disposition home or self-care (01) ==
LOC: HO.PTCHIC 13:00
PROVIDERS: PCP Internal Medicine; Visit Provider Physician Assistant
DX: M25.572 Pain in left ankle and joints of left foot (principal); M25.472 Effusion, left ankle; S93.409D Sprain of unspecified ligament of unspecified ankle, subsequent encounter
CPT/HCPCS: 97014; 97110; 97140; 97162

== ENCOUNTER 2024-12-29 11:20 | Outpatient (AMB) | payer OTHER, SELFPAY ==
--- NOTE | 2024-12-29 11:37 | A.OFFVIS_ITS ---
Intake Visit Reasons: OV - left ankle sprain, DOI 08/2024 Intake Note: Javi is a 49 year old female who presents today for a follow up of her left ankle sprain, DOI 08/2024. At the patient's last visit she was able to discontinue her walking boot and transition to a supportive shoe and work with physical therapy. Patient reports when she was walking today to her appointment she felt a sharp pain on the lateral aspect of her foot and it radiates up to her hip and takes over her whole leg. She states that physical therapy was suggesting tp get an MRI due to patient still having pain. Allergies No Known Allergies Allergy (Verified 12/29/24 11:43) HPI HPI OV - left ankle sprain, DOI 08/2024: Details: Ms. Ortiz is a 49-year-old female presents to the office today for follow-up of a left ankle sprain that occurred in August of 2024. She reports that she has been attending physical therapy and she continues to have pain and points along the lateral aspect of the ankle over the peroneal tendons. Physical therapy had recommended an MRI to further evaluate the ankle. [facility] Social History Alcohol intake: never Patient Tobacco Use Status: Never used Tobacco Current occupational status: disabled Review of Systems Const All systems reviewed & are unremarkable except as noted in HPI and below Physical Exam Const General: cooperative, healthy appearing and no acute distress Resp Effort & Inspection: normal respiratory effort and able to speak in complete sentences Extrem Other: Left ankle [id number] edema near the medial malleolus. There is accompanied tenderness to palpation over the peroneal tendons. She is able to demonstrate full range of motion with dorsiflexion, plantar flexion, inversion and eversion. Sensation is intact pedal pulse intact. Assessment & Plan Assessment & Plan (1) Pain and swelling of left ankle: Code(s): M25.572 - Pain in left ankle and joints of left foot; M25.472 - Effusion, left ankle Category: Medical (2) Ankle sprain: Code(s): S93.409A - Sprain of unspecified ligament of unspecified ankle, initial encounter Category: Medical Plan Ms. Ortiz is a 49-year-old female presents to the office today for follow-up of a left ankle sprain that occurred in August of 2024. She reports that she has been attending physical therapy and she continues to have pain and points along the lateral aspect of the ankle over the peroneal tendons. Physical therapy had recommended an MRI to further evaluate the ankle. On the office today I have placed an order for an MRI to further evaluate the integrity of the left ankle and surrounding structures. In the meantime, she will continue performing her home exercise program. She will follow up after the MRIs obtained for further treatment recommendations. Orders: Orders MR ankle LT wo con Today M25.472 - Effusion, left ankle, M25.572 - Pain in left ankle and joints of left foot, S93.409A - Sprain of unspecified ligament of un specified ankle, initial encounter Coding Level of Care Code Est Pt Level 3 (68034) Diagnoses Pain and swelling of left ankle M25.572; M25.472 Ankle sprain S93.409A
--- OUTSIDE RECORDS SUMMARY | 2024-12-29 12:32 | XMS_ITS | Clinical Summary ---
Author Organization [facility] Address [address] [place] [phone] Phone Care Team Providers Care Molecular Biologist Name Role Phone Shadi Munguia MD Primary Care Provider [phone] Allergies Active Allergy Reactions Criticality Noted Date Comments Other Rash 09/15/2024 Tegaderm Medications albuterol HFA (PROAIR HFA ; PROVENTIL HFA ; VENTOLIN HFA) 90 mcg/actuation inhaler Inhale 2 puffs by mouth every 6 (six) hours if needed for shortness of breath or wheezing (Cough). 024 2024 Active triamcinolone (KENALOG) 0.025 % cream APPLY TO ARMS AND HANDS TWICE DAILY NEEDED FOR FLARES 023 Active Pulmicort Flexhaler 90 mcg/actuation inhaler Inhale 2 puffs by mouth 2 (two) times a day. 3 each 3 025 2025 Active montelukast (SINGULAIR) 10 mg tablet Take 1 tablet (10 mg total) by mouth at bedtime. 90 each 1 025 Active butalbital-acetam inophen-caffeine (FIORICET, ESGIC) 50-325-40 mg per tablet Take 1 tablet by mouth 1 (one) time each day if needed for headaches. 30 tablet 025 Active atorvastatin (LIPITOR) 10 mg tabletIndications :Hyperlipidemia, unspecified hyperlipidemia type Take 1 tablet (10 mg total) by mouth 1 (one) time each day. 30 each 5 025 2024 Active omeprazole (PriLOSEC) [address] capsule TAKE 1 CAPSULE(20 MG) BY MOUTH DAILY. DO NOT CRUSH OR CHEW 30 capsule Active polyethylene glycol (Golytely) 236-22.74-6.74 -5.86 gram solution Take 4L by mouth once for one dose. May substitue any PEG. Starting at 6PM the night before your procedure drink 1 8oz glasses at your own pace until you complete half of the gallon. Finish 2nd half of the gallon 5 hours before your procedure. 4000 mL 2024 Discontinued bisacodyL (DULCOLAX) 5 mg EC tablet Take 2 tablets by mouth right before beginning bowel prep. See instructions provided by the office 2 tablet 2024 Discontinued omeprazole (PriLOSEC) [address] capsule TAKE 1 CAPSULE(20 MG) BY MOUTH 1 TIME EACH DAY. DO NOT CRUSH OR CHEW 30 capsule 025 2024 Discontinued Active Problems Problem Noted Date Diagnosed Date HLD (hyperlipidemia) 04/15/2024 Assessment & Plan (10/25/2024 10:21 AM EDT): Follow low-cholesterol diet. She is currently not on simvastatin. Will monitor lipid panel and restart simvastatin based on levels. Orders: Lipid panel with reflex to direct LDL; Future Other chest pain 06/04/2021 Overview (08/03/2024): Last [...] that lasted over 10 minutes call 911. Assessment & Plan (11/11/2024 3:41 PM EDT): The patient came for evaluation due to episodes of chest pain. The description of the symptoms is consistent with atypical chest pain. Given the patient's age, gender, description of the symptoms, and risk factors for CAD, the patient has an increased risk for coronary artery disease. As such, will order a cardiac CT scan to rule out the presence of underlying CAD or coronary artery anomaly as a cause of the patient's symptoms. The use of the cardia CT scan has a level 1A recommendation from the ACC guidelines for evaluation of the patient with chest pain. Will also order an echocardiogram to rule out any underlying structural heart disease as a cause of her symptoms. Orders: Transthoracic echocardiogram (TTE) complete with PRN contrast, bubble, strain, and 3D order panel; Future perflutren lipid microsphere (DEFINITY) 1.3 mL in sodium chloride 0.9% 8.[address] Angio Heart w 3D Imaging/Function; Future PLMD (periodic limb movement disorder) Overview (08/03/2024): 4.2017 diagnostic polysomnogram revealed PLMD but not JEANNETTE MONET positive 09/18/2017 Centrilobular emphysema ([facility] V24, CMS/[facility] V2 8) 09/18/2017 Raynaud phenomenon 06/24/2017 Degenerative arthritis 05/02/2017 Uterine pain 05/02/2017 Overview (08/03/2024): Underwent laparotomy with total abdominal hysterectomy, right salpingo- oophorectomy and left salpingectomy on 05/22/17 for pelvic pain, endometriosis, right hydrosalpinx COPD (chronic obstructive pu lmonary disease) (CMS/[facility] V24, CMS/[facility] V28) 02/27/2017 Overview (08/03/2024): Alpha-1 low Fibromyalgia 02/27/2017 Assessment & Plan (10/25/2024 10:21 AM EDT): Referral to rheumatology placed. Orders: Ambulatory referral to Rheumatology; Future Heart murmur 02/27/2017 Migraines 02/27/2017 Overview (08/03/2024): CT head (06/05/18) done in ER showed 3-4 4 mm hypodensity at the right basal ganglia which may represent mineralization or acute hemorrhage. Assessment & Plan (10/25/2024 10:21 AM EDT): Continue Fioricet which she uses only as needed. Encounters Date Type Department Care Team Description 12/13/2024 1:00 PM EDT Consult Gastroenterology - [place] [address] [facility] [address] [place] [phone] Judie Whittaker NP Dysphagia, unspecified type (Primary Dx) 12/08/2024 12:59 PM EDT - 12/08/2024 11:59 PM EDT Hospital Encounter Radiology Department - [address] [phone] Encounter for screening mammogram for breast cancer Discharge Disposition: Home or Self Care 12/03/2024 Telephone Internal Medicine - [place] [address] [facility] [place] [phone] Shadi Munguia MD Faxed Order ([facility] ) 12/02/2024 2:15 PM EDT Anesthesia Event [facility] Endoscopy [address] [place] [phone] Tra Fuchs MD Kriz, Petra, MD 12/02/2024 1:44 PM EDT - 12/02/2024 11:59 PM EDT Hospital Encounter [facility] Endoscopy [address] [place] [phone] Jose Frey MD Colon cancer screening Discharge Disposition: Home or Self Care 11/24/2024 Telephone [facility] [address] [place] [address] Flakita Pal MD Appointment (Coronary CTA) 11/17/2024 Telephone Internal Medicine - [place] [address] [place] [phone] Shadi Munguia MD Faxed Order ([employer] ) 11/11/2024 10:20 AM EDT Office Visit [facility] [place] [address] [place] [address] Flakita Pal MD Other chest pain (Primary Dx); Left-sided chest pain; Hyperlipidemia, unspecified hyperlipidemia type 11/11/[address] [place] [address] Flakita Pal MD 10/25/2024 9:45 AM EDT Office Visit Internal Medicine - [address] [phone] Shadi Munguia MD Dysphagia, unspecified type (Primary Dx); Hyperlipidemia, unspecified hyperlipidemia type; Fibromyalgia; Intractable migraine without status migrainosus, unspecified migraine type 10/04/[address] [facility] [address] [place] [address] [facility] [facility] [address] [place] [address] Umesh Lowe MD special procedure 10/04/2024 Telephone Internal Medicine - [address] [phone] Shadi Munguia MD Referral from Last 3 Months Immunizations Name Administration Dates Next Due Influenza Quadravalent, MDCK , 0.5ml, with preservative (Flucelvax) 6mo and older 02/27/2017 Td Tetanus diptheria (Tdvax) 7yo and older 11/22 Surgical History Surgery Date Site/Laterality Comments CHOLECYSTECTOMY PROCEDURE:CHOLECYSTECTOMY HYSTERECTOMY PROCEDURE:HYSTERECTOMY OTHER SURGICAL HISTORY 03/22/2022 N/A PROCEDURE:PANNICULECTOMY;COMME NT:Procedure: ABDOMINOPLASTY; Surgeon: Saw Giordano MD; Location: [facility] MAIN OPERATING ROOM; Service: Plastics; Laterality: N/A; BREAST SURGERY 03/22/2022 Bilateral PROCEDURE:REDUCTION MAMMAPLASTY;COMMENT:Procedure: BILATERAL BREAST REDUCTION; Surgeon: Saw Giordano MD; Location: [facility] MAIN OPERATING ROOM; Service: Plastics; Laterality: Bilateral; LIPOSUCTION 03/22/2022 Bilateral PROCEDURE:LIPOSUCTION;COMMENT: Procedure: LIPOSUCTION ANTERIOR/POSTERIOR FLANKS; Surgeon: Saw Giordano MD; Location: [facility] MAIN OPERATING ROOM; Service: Plastics; Laterality: Bilateral; CHOLECYSTECTOMY 2012 PROCEDURE: LAPAROSCOPIC CHOLECYSTECT ENDOMETRIAL ABLATION 08/2015 PROCEDURE: OK ENDOMETRIAL ABLTJ THERMAL W/O HYSTEROSCOPIC GUID COLONOSCOPY PROCEDURE: HISTORICAL COLONOSCOPY ESOPHAGOGASTRODUODENOSCOPY PROCEDURE: OK ESOPHAGOGASTRODUODENOSCOPY TRANSORAL DIAGNOSTIC PARTIAL HYSTERECTOMY 7 PROCEDURE: OK SUPRACERVICAL ABDL HYSTER W/WO RMVL TUBE OVARY; COMMENT: left ovary preserved BREAST REDUCTION PROCEDURE: OK BREAST REDUCTION BX BREAST PERC 1ST LES STEREO Left FAT NECROSIS AND FIBROSIS WITH DYSTROPHIC CALCIFICATIONS NO ATYPIA OR NEOPLASM IDENTIFIED Medical History Medical History Date Comments PONV (postoperative nausea and vomiting) DX:PONV (postoperative nausea and vomiting) Emphysema of lung (CMS/HCC V 24, CMS/HCC V28) DX:Emphysema of lung (HCC) Migraine headache DX:Migraine he adache;COMMENT:hx Aaron's disease [...] Date Smoking Tobacco: Never Smokeless Tobacco: Never Tobacco Cessation:Counseling Given: Not Answered Alcohol Use Standard Drinks/Week Comments No 0 (1 standard drink = 0.6 oz pur e alcohol) Housing Instability Answer Date Recorde d Are you worried that in the next 2 months you may not have stable housing? No 10/24/2024 Food Access & Nutrition Answer Date Rec orded Do you have access to a vari ety of food including fruits and vegetables? Yes 10/24/2024 Access to Healthcare Answer Date Record ed Within the last 3 months, ho w many times did you visit the emergency department for your medical care? 1 10/24/2024 Health Literacy Answer Date Recorded How often do you need to hav e someone help you when you read instructions, pamphlets, or other written material from your doctor or pharmacy? Never 10/24/2024 Caregiver: How often do you need to have someone help you when you read instructions, pamphlets, or other written material from your doctor or pharmacy? Not on file 10/24/2024 Transportation Answer Date Recorded Has the lack of transportati on kept you from meetings, work, or from getting things needed for daily living? No Has the lack of transportati on kept you from medical appointments or from getting medications? No 10/24/2024 Social Isolation Answer Date Recorded How often do you feel lonely or isolated from th ose around you? Never 10/24/2024 Food Risk Answer Date Recorded Within the past 12 months we worried whether our food would run out before we got money to buy more. Never true 10/24/2024 Within the past 12 months th e food we bought just didn't last and we didn't have money to get more. Never true 10/24/2024 Dependent Care Answer Date Recorded Do you need help finding or paying for care for your loved ones. For example, school child care attendant or elderly care for an older adult? No 10/24/2024 Education Answer Date Recorded Do you think completing more education or training, like finishing a GED, going to college, or learning a trade, would be helpful for you? No 10/24/2024 Employment and Income Answer Date Recor ded During the last four weeks, have you been actively looking for work? No 10/24/2024 Living Situation Answer Date Recorded What is your living situation? 0 10/24/2024 Interpersonal Safety Answer Date Record ed Physical Abuse 12/02/2024 Verbal Abuse 12/02/2024 Comments No Sex and Gender Information Value Date Recorded Sex Assigned at Female 09/22/2024 10:55 AM EDT Legal Sex Female 1:34 AM EST Gender Identity Female 09/22/2024 10:55 AM EDT Sexual Orientation Straight 09/22/2024 10 :58 AM EDT Obstetrics History Para Term AB IAB SAB Ectopic Multiple Livin g Live Births 2 2 2 2 Date Outcome GA Total Labor Labor/2nd/3rd Weight Sex Type Anes PTL Kenzie A1 A5 Name Clin Term Term Last Filed Vital Signs Vital Sign Reading Time Taken Comments Blood Pressure 125/80 12/13/2024 1:02 PM EDT Pulse 88 12/13/2024 1:02 PM EDT Temperature 36.6 C (97.9 F) 12/02/2024 2:06 PM EDT Respiratory Rate 20 12/02/2024 2:45 PM EDT Oxygen Saturation 98% 12/13/2024 1:02 PM EDT Inhaled Oxygen Concentration - - Weight 68 kg (150 lb) 12/13/2024 1:02 PM EDT Height 154.9 cm (5' 1 ) 12/13/2024 1:02 PM EDT Body Mass Index 28.34 12/13/2024 1:02 PM EDT Plan of Treatment Upcoming Encounters Date Type Department Care Team (Late st Contact Info) Description 01/31/2025 2:30 PM EDT Office Visit Pulmonolgy - [place] [address] [phone] Meem Diaz MD [address] [address] 02/01/2025 8:15 AM EDT Appointment [facility] Xray [address] [place] [phone] 02/16/2025 3:30 PM EDT Ancillary Procedure [facility] - [facility] [address] [facility] [address] [place] [phone] Health Maintenance Due Date Last Done Comments Hepatitis B Vaccines (1 of 3 - 19+ 3-dose series) 1996 Pneumococcal Vaccine: Pediatrics (0 to 5 Years) and At-Risk Patients (6 to 49 Years) (1 of 2 - PCV) 1996 Cervical Cancer Screening: Pap Smear 02/26/2020 02/25/2017, 02/25/2017 Medicare Annual Wellness Visit 06/01/2022 COVID-19 Vaccine ( season) 2024 03/15/2021, 02/22/2021 Influenza Vaccine (#1) 2025 02/27/2017 Depression Screening 10/24/2025 10/24/2024 Social Influencers of Health Screening 10/24/2025 10/24/2024 Breast Cancer Screening 12/08/2026 12/09/19 25, 02/03/2024, 02/03/2024, Additional history exists Cholesterol Screening (Lipid Panel) 12/08/2029 12/08/2024, 06/14/2024, 04/12/2024 DTaP,Tdap,and Td Vaccines (2 - Td or Tdap) 11/22/2032 11/22/2022 Colorectal Cancer Screening: Colonoscopy 12/02/2034 12/02/2024, 09/23/2024 HIV Screening Completed 02/25/2017 Hepatitis C [...] Procedure Name Priority Date/Time Associated Diagnosis Comments MG MAMMO DIGITAL SCREENING W LEONIDES BILAT Routine 12/08/2024 1:12 PM EDT Encounter for screening mammogram for breast cancer LIPID PANEL WITH REFLEX TO DIRECT LDL Routine 12/08/2024 12:40 PM EDT Hyperlipidemia, unspecified hyperlipidemia type COLONOSCOPY Routine 12/02/2024 2:34 PM EDT Colon cancer screening ECG 12-LEAD Routine 11/11/2024 10:13 AM EDT Hyperlipidemia, unspecified hyperlipidemia type HEPATITIS C SCREENING Routine 02/25/2017 HIV SCREENING Routine 02/25/2017 HPV Routine 02/25/2017 from Last 3 Months or Most Recently Relevant to Health Maintenance Results * MG Mammo Digital Screening w Leonides bilat (12/08/2024 1:12 PM EDT) Anatomical Region Laterality Modality Breast Bilateral Mammography 12/09/2024 8:41 AM EDT Impressions 12/09/2024 8:43 AM EDT No mammographic evidence of malignancy. BREAST DENSITY: B - There are scattered areas of fibroglandular density. BI-RADS CATEGORY: 2 - BENIGN RECOMMENDATION: Screening bilateral mammogram is recommended in 1 year. MAMMO LOCATION: [facility], [address] [place] [address], [id number], . -------- FINAL REPORT -------- Dictated By: Brittany Tyson Dictated Date: 12/09/2024 08:41 ET Assigned Physician: Brittany Tyson Reviewed and Electronically Signed By: Brittany Tyson Signed Date: 12/09/2024 08:43 ET Workstation ID: [id number] Transcribed By: Self Edit Transcribed Date: 12/09/2024 08:41 ET Narrative 12/09/2024 8:43 AM EDT EXAM: Screening Mammogram CLINICAL: 49 years old, Female, routine annual exam. History of bilateral reduction mammoplasty. History of a benign left stereotactic core biopsy 02/03/2024. COMPARISON: 12/03/2023 and 01/14/2022 TECHNIQUE: Bilateral MLO and CC views were obtained digitally with 3-D mammogram (digital breast tomosynthesis). Computer-aided detection was utilized in evaluation of this exam (CAD). FINDINGS: Stable bilateral postsurgical changes of reduction mammoplasty. No new suspicious mass, architectural distortion, or suspicious calcifications. Procedure Note Brittany Tyson MD - 12/09/2024 EXAM: Screening Mammogram CLINICAL: 49 years old, Female, routine annual exam. History of bilateralreduction mammoplasty. History of a benign left stereotactic core [id number]/03/2024. COMPARISON: 12/03/2023 and 01/14/2022 TECHNIQUE: Bilateral MLO and CC views were obtained digitally with 3-Dmammogram (digital breast tomosynthesis). Computer-aided detection wasutilized in evaluation of this exam (CAD). FINDINGS: Stable bilateral postsurgical changes of reduction mammoplasty. No newsuspicious mass, architectural distortion, or suspicious calcifications. IMPRESSION: No mammographic evidence of malignancy. BREAST DENSITY: B - There are scattered areas of fibroglandular density. BI-RADS CATEGORY: 2 - BENIGN RECOMMENDATION: Screening bilateral mammogram is recommended in 1 year. MAMMO LOCATION: [facility], [address] [place] [address], [address], . -------- FINAL REPORT -------- Dictated By: Brittany Tyson Dictated Date: 12/09/2024 08:41 ET Assigned Physician: Brittany Tyson Reviewed and Electronically Signed By: Brittany Tyson Signed Date: 12/09/2024 08:43 ET Workstation ID: [id number] Transcribed By: Self Edit Transcribed Date: 12/09/2024 08:41 ET us Shadi Munguia MD IM BI PROCEDURES Final R esult * (ABNORMAL) Lipid panel with reflex to direct LDL (12/08/2024 12:40 PM EDT) Cholesterol 211(H) 0 - 200 mg/dL LAB CHEMISTRY METHOD 12/08/2024 4:58 PM EDT [facility] Triglycerides 87 0 - 150 mg/dL LAB CHEMISTRY METHOD 12/08/2024 4:58 PM EDT [facility] HDL 53 >=40 mg/dL LAB CHEMISTRY METHOD 12/08/2024 4:58 PM EDT [facility] LDL Calculated 141(H) 0 - 100 mg/dL LAB CHEMISTRY METHOD 12/08/2024 4:58 PM EDT [facility] VLDL Cholesterol Alvin 17.4 mg/dL LAB CHEMISTRY METHOD 12/08/2024 4:58 PM EDT [facility] Non HDL Chol. (LDL+VLDL) 158(H) <145 mg/dL LAB CHEMISTRY METHOD 12/08/2024 4:58 PM EDT [facility] Chol/HDL Ratio 4.0 0.0 - 4.4 LAB CHEMISTRY METHOD 12/08/2024 4:58 PM EDT [facility] Blood Venous blood specimen / Unknown Venipuncture / Unknown 12/08/2024 12:40 PM EDT 12/08/2024 12:40 PM EDT Shadi Munguia MD LAB BLOOD ORDERABLES Mima l Result [facility] [address] [place] [address], * COLONOSCOPY Anesthesia - MAC; [facility] ENDOSCOPY (12/02/2024 2:34 PM EDT) Anatomical Region Laterality Modality Other 12/02/2024 2:09 PM EDT Impressions 12/02/2024 2:35 PM EDT - The entire examined colon is normal on direct and retroflexion views. - No specimens collected. Recommendation: - Repeat colonoscopy in 10 years for screening purposes. Narrative 12/02/2024 2:35 PM EDT [facility] GI Patient Name: Javi Cao Procedure Date: 12/02/2024 2:09 PM Date of : 1975 Age: 49 Room: ROOM 14 Gender: Female Note Status: Finalized Attending MD: Jose Frey MD, Procedure Date No Time: 12/02/2024 Procedure: Colonoscopy Indications: Screening for colorectal malignant neoplasm Providers: Jose Frey MD Referring MD: Jose Frey MD Medicines: Propofol per Anesthesia Complications: No immediate complications. Estimated Blood Loss: Estimated blood loss: none. Procedure: Pre-Anesthesia Assessment: - ASA Grade Assessment: II - A patient with mild systemic disease. After I obtained informed consent, the scope was passed under direct vision. Throughout the procedure, the patient's blood pressure, pulse, and oxygen saturations were monitored continuously.The Olympus Pediatric Colonosocpe was introduced through the anus and advanced to the cecum, identified by appendiceal orifice and ileocecal valve. The colonoscopy was performed without difficulty. The patient tolerated the procedure well. The quality of the bowel preparation was good. Findings: The perianal and digital rectal examinations were normal. The entire examined colon appeared normal on direct and retroflexion views. Procedure Code(s): --- Professional --- G0121, Colorectal cancer screening; colonoscopy on individual not meeting criteria for high risk Diagnosis Code(s): --- Professional --- Z12.11, Encounter for screening for malignant neoplasm of colon CPT copyright 2020 [employer]. All rights reserved. The codes documented in this report are preliminary and upon bulb tester review may be revised to meet current compliance requirements. Jose Frey MD 12/02/2024 2:35:39 PM This report has been signed electronically.Jose Frey MD Number of Addenda: 0 Note Initiated On: 12/02/2024 2:09 PM Scope In: Scope Out: Endoscopy Department at [facility] - [address] [place] [phone] Procedure Note Jose Frey MD - 12/02/2024 [facility] GI Patient Name: Javi Cao Procedure Date: 12/02/2024 2:09 PM Date of : 1975 Age: 49 Room: ROOM 14 Gender: Female Note Status: Finalized Attending MD: Jose Frey MD, Procedure Date No Time: 12/02/2024 Procedure: Colonoscopy Indications: Screening for colorectal malignant neoplasm Providers: Jose Frey MD Referring MD: Jose Frey MD Medicines: Propofol per Anesthesia Complications: No immediate complications. Estimated Blood Loss: Estimated blood loss: none. Procedure: Pre-Anesthesia Assessment: - ASA Grade Assessment: II - A patient with mild systemic disease. After I obtained informed consent, the scope was passed under direct vision. Throughout theprocedure, the patient's blood pressure, pulse, and oxygen saturations were monitored continuously.The Olympus Pediatric Colonosocpe was introduced through theanus and advanced to the cecum, identified byappendiceal orifice and ileocecal valve. The colonoscopy was performed without difficulty. The patient tolerated the procedure well. The quality of the bowel preparation was good. Findings: The perianal and digital rectal examinations were normal. The entire examined colon appeared normal on direct and retroflexion views. Procedure Code(s): --- Professional --- G0121, Colorectal cancer screening; colonoscopy on individual not meeting criteria for high risk Diagnosis Code(s): --- Professional --- Z12.11, Encounter for screening for malignantneoplasm of colon CPT copyright 2020 [employer]. All rights reserved. The codes documented in this report are preliminary and upon bulb tester reviewmay be revised to meet current compliance requirements. Jose Frey MD 12/02/2024 2:35:39 PM This report has been signed electronically.Jose Frey MD Number of Addenda: 0 Note Initiated On: 12/02/2024 2:09 PM Scope In: Scope Out: Endoscopy Department at [address] [phone] IMPRESSION: - The entire examined colon is normal on direct and retroflexion views. - No specimens collected. Recommendation: - Repeat colonoscopy in 10 years for screening purposes. us Jose Frey MD GI~PROCEDURE ORDERABLES Fin al Result * ECG 12 lead (11/11/2024 10:13 AM EDT) Ventricular Rate ECG 67 BPM GEMUSE Atrial Rate 67 BPM GEMUSE P-R Interval 120 ms GEMUSE QRS Duration 74 ms GEMUSE Q-T Interval 408 ms GEMUSE QTc 431 ms GEMUSE P Wave [place] 58 degrees GEMUSE R [place] 58 degrees GEMUSE T [place] 39 degrees GEMUSE ECG Interpretation Normal sinus rhythm Nonspecific T wave abnormality Abnormal ECG When compared with ECG of 21-JUL-2019 14:13, No significant change was found Confirmed by FLAKITA PAL ([id number]) on 11/11/2024 3:40:04 PM GEMUSE 11/11/2024 10:1 3 AM EDT 11/11/2024 3:40 PM EDT Flakita Pal MD ECG ORDERABLES Final Result GEMUSE * Cervical Cancer Screening: HPV (02/25/2017) [facility]ologist [facility] Cervical Cancer Screening: HPV Abstracted, Negative Historical Provider HEALTH MAINTENANCE Final Result * HIV Screening (02/25/2017) [facility] HIV Screening Abstracted Historical Provider HEALTH MAINTENANCE Final Result * Hepatitis C Screening (02/25/2017) [facility] Hepatitis C Screening Abstracted Historical Provider HEALTH MAINTENANCE Final Result from Last 3 Months or Most Recently Relevant to Health Maintenance Insurance [employer] MEDICARE Member Subscriber Plan / Payer (Ef fective 2024-Present) Name:JAVI CAO Relation to Subscriber:Self Name:Javi Cao Payer ID:[id number] Group ID:[id number] Type:Not on file Address: [address] [facility] [place] [phone] Advance Directives Documents on File Type Date Recorded Patient Oven Press Tender Expl anation Health Care Decision (hx) 05/22/2017 [...] (hx) 05/22/2017 AD PEREZ DIRECTIVE Care Teams Molecular Biologist Relationship Specialty Start Date End Date Shadi Munguia MD [address] [place] [phone] PCP - General Internal Medicine 08/03/24
--- OUTSIDE RECORDS SUMMARY | 2024-12-29 12:32 | XMS_ITS | Clinical Summary ---
Author Organization [facility] Address [address] [place] [address] Care Team Providers Care Revenue Research Analyst Name Role Phone Shadi Munguia MD Primary Care Provider [phone] Allergies No known active allergies Medications No [...] 78 03/22/2022 4:30 PM EDT Temperature 36.4 C (97.5 F) 03/22/2022 4:15 PM EDT Respiratory Rate 14 03/22/2022 4:30 PM EDT Oxygen Saturation 96% 03/22/2022 4:30 PM EDT Inhaled Oxygen Concentration - - Weight 60.3 kg (133 lb) 03/19/2022 8:36 AM EDT Height 154.9 cm (5' 1 ) 03/19/2022 8:36 AM EDT Body Mass Index 25.13 03/19/2022 8:36 AM EDT Plan of Treatment Not on file Care Teams Revenue Research Analyst Relationship Specialty Start Date End Date Shadi Munguia MD [address] [place] [address] PCP - General Internal Medicine 03/11/22
== END 2024-12-29 12:06 | disposition home or self-care (01) ==
LOC: HO.HOS 11:20
PROVIDERS: PCP Internal Medicine; Visit Provider Physician Assistant
DX: M25.572 Pain in left ankle and joints of left foot (principal); M25.472 Effusion, left ankle; S93.409A Sprain of unspecified ligament of unspecified ankle, initial encounter
CPT/HCPCS: 99213

== ENCOUNTER → 2024-12-29 11:20 | Outpatient (BNVA) | payer OTHER, SELFPAY | PROVIDERS: PCP Internal Medicine; Visit Provider Physician Assistant | DX: M25.572 Pain in left ankle and joints of left foot (principal); M25.472 Effusion, left ankle; S93.402A Sprain of unspecified ligament of left ankle, initial encounter | CPT/HCPCS: 99212 ==

== ENCOUNTER 2025-01-13 16:34 | Outpatient (REF) | payer OTHER, SELFPAY ==
--- NOTE | ~2025-01-13 | MR_ITS ---
EXAM: MRI of the left ankle without contrast TECHNIQUE: Multiplanar multisequence imaging performed through a lower extremity joint without contrast. INDICATION: Left ankle pain and swelling, failed to improve after one month physical therapy PRIOR: X-ray September 18, 2024 FINDINGS: Achilles tendon / plantar fascia: There is very mild thickening of the Achilles tendon 4 cm cephalad to the calcaneal insertion. Plantar fascia is unremarkable. Lateral ankle ligaments: Syndesmotic ligaments are intact. Anterior talofibular ligament is thickened with increased signal. Calcaneofibular ligament is indistinct with increased signal Posterior talofibular ligament is intact Deltoid ligament complex: Deltoid ligament complex is intact. Ankle tendons: Peroneal, medial, and the anterior ankle tendons are intact without abnormal signal or size changes. Talar Dome: Talar dome is intact without evidence of an osteochondral lesion or other abnormality. Sinus tarsi: The physiologic architecture of sinus tarsi is preserved. Bone marrow: Bone marrow signal is physiologic. Articular cartilage: There are no articular cartilage defects. Soft Tissues: There are no soft tissue masses, fluid collections, or other abnormalities. MR/MR ankle LT wo con IMPRESSION: There is a grade 2 sprain of the anterior talofibular ligament and grade 2-3 sprain of calcaneofibular ligament. Mild chronic tendinopathy of Achilles tendon. Electronically signed by: Ty Carrion MD 01/13/2025 05:41 PM EDT
--- OUTSIDE RECORDS SUMMARY | 2025-01-13 16:37 | XMS_ITS ---
Author Name [facility] Organization Unknown Care Team Organization Name Specialty Phone Email Start Date End Da te [facility] Shadi Munguia Primary Care 08/28/2022 02/09/2024 [facility] Ray Rodriguez Primary Care 04/30/202201/21
--- OUTSIDE RECORDS SUMMARY | 2025-01-13 16:37 | XMS_ITS | Clinical Summary ---
Author Organization [facility] Address [address] [place] [address] Care Team Providers Care Return To Service Inspector Name Role Phone Shadi Munguia MD Primary Care Provider [phone] Allergies No known active allergies Medications No [...] of Treatment Not on file Care Teams Return To Service Inspector Relationship Specialty Start Date End Date Shadi Munguia MD [address] [place] [phone] PCP - General Internal Medicine 03/11/22
--- OUTSIDE RECORDS SUMMARY | 2025-01-13 16:37 | XMS_ITS | Clinical Summary ---
Author Organization [facility] Address [address] [place] [phone] Phone Care Team Providers Care Correspondence Review Clerk Name Role Phone Shadi Munguia MD Primary Care Provider +1 [phone] Allergies Active Allergy Reactions Criticality Noted Date Comments Other Rash 09/15/2024 Tegaderm Medications albuterol HFA (PROAIR HFA ; PROVENTIL HFA ; VENTOLIN HFA) 90 mcg/actuation inhaler Inhale 2 puffs by mouth every 6 (six) hours if needed for shortness of breath or wheezing (Cough). 04/01/20 24 025 Active triamcinolone (KENALOG) 0.025 % cream APPLY TO ARMS AND HANDS TWICE DAILY NEEDED FOR FLARES 12/05/19 23 Active Pulmicort Flexhaler 90 mcg/actuation inhaler Inhale 2 puffs by mouth 2 (two) times a day. 3 each 3 09/02/19 25 026 Active montelukast (SINGULAIR) 10 mg tablet Take 1 tablet (10 mg total) by mouth at bedtime. 90 each 1 10/26/19 25 Active butalbital-acetam inophen-caffeine (FIORICET, ESGIC) 50-325-40 mg per tablet Take 1 tablet by mouth 1 (one) time each day if needed for headaches. 30 tablet 10/26/19 25 Active atorvastatin (LIPITOR) 10 mg tabletIndications :Hyperlipidemia, unspecified hyperlipidemia type Take 1 tablet (10 mg total) by mouth 1 (one) time each day. 30 each 5 12/13/19 25 025 Active omeprazole (PriLOSEC) [address] capsule TAKE 1 CAPSULE(20 MG) BY MOUTH DAILY. DO NOT CRUSH OR CHEW 30 capsule 12/22/19 25 Active omeprazole (PriLOSEC) [address] capsule TAKE 1 CAPSULE(20 MG) BY MOUTH 1 TIME EACH DAY. DO NOT CRUSH OR CHEW 30 capsule 11/24/19 25 025 Discontinued Active Problems Problem Noted Date Diagnosed [...] Imaging/Function; Future PLMD (periodic limb movement disorder) 8 Overview (08/03/2024): 4.2017 diagnostic polysomnogram revealed PLMD but not JEANNETTE MONET positive 09/18/2017 Centrilobular emphysema ([facility] V24, [facility] V2 8) 09/18/2017 Raynaud phenomenon 06/24/2017 Degenerative arthritis 05/02/2017 Uterine pain 05/02/2017 Overview (08/03/2024): Underwent laparotomy with total abdominal hysterectomy, right salpingo- oophorectomy and left salpingectomy on 05/22/17 for pelvic pain, endometriosis, right hydrosalpinx COPD (chronic obstructive pu lmonary disease) ([facility] V24, [facility] V28) 02/27/2017 Overview (08/03/2024): Alpha-1 low Fibromyalgia [...] 12/13/2024 1:00 PM EDT Consult Gastroenterology - [place] [address] [place] [address] Judie Whittaker NP Dysphagia, unspecified type (Primary Dx) 12/08/2024 12:59 PM EDT - 12/08/2024 11:59 PM EDT Hospital Encounter Radiology Department - [address] [phone] Encounter for screening mammogram for breast cancer Discharge Disposition: Home or Self Care 12/03/2024 Telephone Internal Medicine - [facility] [address] [place], [place] [phone] Shadi Munguia MD Faxed Order ([facility] ) 12/02/2024 2:15 PM EDT Anesthesia Event [facility] Endoscopy [address] [place] [phone] Tra Fuchs MD Kriz, Petra, MD 12/02/2024 1:44 PM EDT - 12/02/2024 11:59 PM EDT Hospital Encounter [facility] Endoscopy [address] [place] [phone] Jose Frey MD Colon cancer screening Discharge Disposition: Home or Self Care 11/24/2024 Telephone [facility] Cardiology [facility] [address] [place] [address] Flakita Tenorio MD Appointment (Coronary CTA) 11/17/2024 Telephone Internal Medicine - [place] [address] [facility] [place], [place] [phone] Shadi Munguia MD Faxed Order ([facility] ) 11/11/2024 10:20 AM EDT Office Visit [facility] Cardiology [facility] [address] [place] [address] Flakita Tenorio MD Other chest pain (Primary Dx); Left-sided chest pain; Hyperlipidemia, unspecified hyperlipidemia type 11/11/[address] [facility] [address] [facility] [address] [place] [address] Flakita Tenorio MD 10/25/2024 9:45 AM EDT Office Visit Internal Medicine - [place] [address] [place] [phone] Shadi Munguia MD Dysphagia, unspecified type (Primary Dx); Hyperlipidemia, unspecified hyperlipidemia type; Fibromyalgia; Intractable migraine without status migrainosus, unspecified migraine type from Last 3 Months Immunizations Name Administration Dates Next Due Influenza Quadravalent, MDCK , 0.5ml, with preservative (Flucelvax) 6mo and older 02/27/2017 Td Tetanus diptheria (Tdvax) 7yo and older 11/22 Surgical History Surgery Date Site/Laterality Comments CHOLECYSTECTOMY PROCEDURE:CHOLECYSTECTOMY HYSTERECTOMY PROCEDURE:HYSTERECTOMY OTHER SURGICAL HISTORY 03/22/2022 N/A PROCEDURE:PANNICULECTOMY;COMME NT:Procedure: ABDOMINOPLASTY; Surgeon: Saw Giordano MD; Location: [facility] MAIN OPERATING ROOM; Service: Plastics; Laterality: N/A; BREAST SURGERY 03/22/2022 Bilateral PROCEDURE:REDUCTION MAMMAPLASTY;COMMENT:Procedure: BILATERAL BREAST REDUCTION; Surgeon: Saw Giordano MD; Location: [facility] MAIN OPERATING ROOM; Service: Plastics; Laterality: Bilateral; LIPOSUCTION 03/22/2022 Bilateral PROCEDURE:LIPOSUCTION;COMMENT: Procedure: LIPOSUCTION ANTERIOR/POSTERIOR FLANKS; Surgeon: Saw Giordano MD; Location: [facility] MAIN OPERATING ROOM; Service: Plastics; Laterality: Bilateral; CHOLECYSTECTOMY 2012 PROCEDURE: LAPAROSCOPIC CHOLECYSTECT ENDOMETRIAL ABLATION 08/2015 PROCEDURE: OK ENDOMETRIAL ABLTJ THERMAL W/O HYSTEROSCOPIC GUID COLONOSCOPY PROCEDURE: HISTORICAL COLONOSCOPY ESOPHAGOGASTRODUODENOSCOPY PROCEDURE: OK ESOPHAGOGASTRODUODENOSCOPY TRANSORAL DIAGNOSTIC PARTIAL HYSTERECTOMY 7 PROCEDURE: OK SUPRACERVICAL ABDL HYSTER W/WO RMVL TUBE OVARY; COMMENT: left ovary preserved BREAST REDUCTION PROCEDURE: OK BREAST REDUCTION BX BREAST PERC 1ST LES STEREO 4 Left FAT NECROSIS AND FIBROSIS WITH DYSTROPHIC [...] care for your loved ones. For example, child care specialist or elderly care for an older adult? [...] 2:30 PM EDT Office Visit Pulmonolgy - [place] [address] [facility] [address] [place] [address] Meme Diaz MD [address] [facility] [address] [place] [address] 02/01/2025 8:15 AM EDT Appointment [facility] Xray [address] [place] [phone] 02/16/2025 3:30 PM EDT Ancillary Procedure [facility] - [facility] [address] [facility] [address] [place] [address] Health Maintenance Due Date Last Done Comments Hepatitis B Vaccines (1 of 3 - 19+ 3-dose series) 1996 Pneumococcal Vaccine: Pediatrics (0 to 5 Years) and At-Risk Patients (6 to 49 Years) (1 of 2 - PCV) 1996 Cervical Cancer Screening: Pap Smear 02/26/2020 02/25/2017, 02/25/2017 Medicare Annual Wellness Visit 06/01/2022 COVID-19 Vaccine ( season) 2024 03/15/2021, 02/22/2021 Influenza Vaccine (#1) 2025 02/27/2017 Social Influencers of Health Screening 10/24/2025 10/24/2024 Breast Cancer Screening 12/08/2026 12/09/19 25, 02/03/2024, 02/03/2024, Additional history exists Cholesterol Screening (Lipid Panel) 12/08/2029 12/08/2024, 06/14/2024, 04/12/2024 DTaP,Tdap,and Td Vaccines (2 - Td or Tdap) 11/22/2032 11/22/2022 Colorectal Cancer Screening: Colonoscopy 12/02/2034 12/02/2024, 09/23/2024 HIV Screening Completed 02/25/2017 Hepatitis C Screening Completed 02/25/2017 Depression Screening Completed 10/24/2024 HIB Vaccines Aged Out No longer eligi [...] is recommended in 1 year. MAMMO LOCATION: [facility], [address] [place] [address], [address], . -------- FINAL REPORT -------- Dictated By: Brittany Tyson Dictated Date: 12/09/2024 08:41 ET Assigned Physician: Brittany Tyson Reviewed and Electronically Signed By: Brittany Tyson Signed Date: 12/09/2024 08:43 ET Workstation ID: [id number] Transcribed By: Self Edit Transcribed Date: 12/09/2024 [...] History of a benign left stereotactic core [id number]/03/2024. COMPARISON: 12/03/2023 and 01/14/2022 TECHNIQUE: Bilateral MLO [...] is recommended in 1 year. MAMMO LOCATION: [facility], [address] [place] [address], [phone], . -------- FINAL REPORT -------- Dictated By: Brittany Tyson Dictated Date: 12/09/2024 08:41 ET Assigned Physician: Brittany Tyson Reviewed and Electronically Signed By: Brittany Tyson Signed Date: 12/09/2024 08:43 ET Workstation ID: [id number] Transcribed By: Self Edit Transcribed Date: 12/09/2024 08:41 ET Shadi Munguia MD IMG BI PROCEDURES Final R esult * (ABNORMAL) Lipid panel with reflex to direct LDL (12/08/2024 12:40 PM EDT) Cholesterol 211(H) 0 - 200 mg/dL LAB CHEMISTRY METHOD 12/08/2024 4:58 PM EDT [facility] Triglycerides 87 0 - 150 mg/dL LAB CHEMISTRY METHOD 12/08/2024 4:58 PM EDT [facility] HDL 53 >=40 mg/dL LAB CHEMISTRY METHOD 12/08/2024 4:58 PM EDT [facility] LDL Calculated 141(H) 0 - 100 mg/dL LAB CHEMISTRY METHOD 12/08/2024 4:58 PM EDT [facility] VLDL Cholesterol Alvin 17.4 mg/dL LAB CHEMISTRY METHOD 12/08/2024 4:58 PM EDT [facility] Non HDL Chol. (LDL+VLDL) 158(H) <145 mg/dL LAB CHEMISTRY METHOD 12/08/2024 4:58 PM EDT [facility] Chol/HDL Ratio 4.0 0.0 - 4.4 LAB CHEMISTRY METHOD 12/08/2024 4:58 PM EDT [facility] Blood Venous blood specimen / Unknown Venipuncture / Unknown 12/08/2024 12:40 PM EDT 12/08/2024 12:40 PM EDT Shadi Munguia MD LAB BLOOD ORDERABLES Mima hall Result [facility] [address] [place] [address], * COLONOSCOPY Anesthesia - MAC; [facility] ENDOSCOPY (12/02/2024 2:34 PM EDT) Anatomical Region Laterality Modality Other 12/02/2024 2:09 PM EDT Impressions 12/02/2024 2:35 PM EDT - The entire examined colon is normal on direct and retroflexion views. - No specimens collected. Recommendation: - Repeat colonoscopy in 10 years for screening purposes. Narrative 12/02/2024 2:[address] [facility] GI Patient Name: Javi Ortiz Procedure Date: 12/02/2024 2:09 PM Date of [...] malignant neoplasm of colon CPT copyright 2020 [employer]. All rights reserved. The codes documented in this report are preliminary and upon suction plate roller hand review may be revised to meet current compliance requirements. Jose Frey MD 12/02/2024 2:35:39 PM This report has been signed electronically.Jose Frey MD Number of Addenda: 0 Note Initiated On: 12/02/2024 2:09 PM Scope In: Scope Out: Endoscopy Department at [facility] - [address] [place] [phone] Procedure Note Jose Frey MD - 12/02/[address] [facility] GI Patient Name: Javi Ortiz Procedure Date: 12/02/2024 2:09 PM Date of [...] screening for malignantneoplasm of colon CPT copyright 202 [employer]. All rights reserved. The codes documented in this report are preliminary and upon suction plate roller hand reviewmay be revised to meet current compliance requirements. Jose Frey MD 12/02/2024 2:35:39 PM This report has been signed electronically.Jose Frey MD Number of Addenda: 0 Note Initiated On: 12/02/2024 2:09 PM Scope In: Scope Out: Endoscopy Department at [facility] - [address] [place] [phone] IMPRESSION: - The entire examined colon is normal on direct and retroflexion views. - No specimens collected. Recommendation: - Repeat colonoscopy in 10 years for screening purposes. Jose Frey MD GI~PROCEDURE ORDERABLES Fin al Result * ECG 12 lead (11/11/2024 10:13 AM EDT) Pathologist [facility] Ventricular Rate ECG 67 BPM GEMUSE Atrial Rate 67 BPM GEMUSE P-R Interval 120 ms GEMUSE QRS Duration 74 ms GEMUSE Q-T Interval 408 ms GEMUSE QTc 431 ms GEMUSE P Wave Canadian 58 degrees GEMUSE R Canadian 58 degrees GEMUSE T Canadian 39 degrees GEMUSE ECG Interpretation Normal sinus rhythm Nonspecific T wave abnormality Abnormal ECG When compared with ECG of 21-JUL-2019 14:13, No significant change was found Confirmed by FLAKITA TENORIO ([id number]) on 11/11/2024 3:40:04 PM GEMUSE 11/11/2024 10:1 3 AM EDT 11/11/2024 3:40 PM EDT Flakita Tenorio MD ECG ORDERABLES Final Result GEMUSE * Cervical Cancer Screening: HPV (02/25/2017) Pathologist [facility] Cervical Cancer Screening: HPV Abstracted, Negative Historical Provider HEALTH MAINTENANCE Final Result * HIV Screening (02/25/2017) Pathologist [facility] HIV Screening Abstracted Historical Provider HEALTH MAINTENANCE Final Result * Hepatitis C Screening (02/25/2017) Pathologist [facility] Hepatitis C Screening Abstracted us Historical Provider HEALTH MAINTENANCE Final Result from Last 3 Months or Most Recently Relevant to Health Maintenance Insurance [employer] MEDICARE Member Subscriber Plan / Payer (Ef fective 2024-Present) Name:JAVI ROTIZ Relation to Subscriber:Self Name:Javi Ortiz Payer ID:[id number] Group ID:[id number] Type:Not on file Address: [place] [facility] [place] [phone] Advance Directives Documents on File Type Date Recorded Patient 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
== END 2025-01-13 16:35 | disposition home or self-care (01) ==
LOC: HO.MRI 16:34
PROVIDERS: PCP Internal Medicine; Visit Provider Physician Assistant
DX: M25.572 Pain in left ankle and joints of left foot (principal); M25.472 Effusion, left ankle; S93.402D Sprain of unspecified ligament of left ankle, subsequent encounter
CPT/HCPCS: 73721

== ENCOUNTER → 2025-01-13 16:40 | Outpatient (BNV) | payer OTHER, SELFPAY | PROVIDERS: PCP Internal Medicine; Visit Provider Radiology Diagnostic Radiology | DX: S93.422A Sprain of deltoid ligament of left ankle, initial encounter (principal) | CPT/HCPCS: 73721 ==

== ENCOUNTER 2025-01-28 14:04 | Outpatient (AMB) | payer OTHER, SELFPAY ==
--- NOTE | 2025-01-28 14:05 | MHC.OFFVIS ---
Intake Visit Reasons: TH: MRI review of left ankle Intake Note: Javi is a 49 year old female who presents today via telephone video for a MRI review of her left ankle. patient states she is still having pain and swelling in her ankle. Allergies No Known Allergies Allergy (Verified 01/28/25 14:05) HPI HPI TH: MRI review of left ankle: Details: Ms. Ortiz is a 49-year-old female who presents to her appointment today via telehealth. She reports that the left ankle has really not been making any significant improvement. She continues to have waxing and waning swelling on the left side (lateral) ankle. [facility] Social History Alcohol intake: never Patient Tobacco Use Status: Never used Tobacco Current occupational status: disabled Review of Systems Const All systems reviewed & are unremarkable except as noted in HPI and below Telehealth Telehealth Telehealth Platform: [facility] Location of provider rendering services: practice address Location of patient: address on file Patient Identification confirmed using: Name, : Yes Telehealth method: video Patient verbally consented to treatment: Yes Patient verbally consented to billing insurance company: Yes Patient informed of any privacy concerns related to visit: Yes Minutes spent on Phone/Video with Pt.: 15 Assessment & Plan Assessment & Plan (1) Ankle sprain: Code(s): S93.409A - Sprain of unspecified ligament of unspecified ankle, initial encounter Category: Medical Plan Ms. Ortiz is a 49-year-old female who presents to her appointment today via telehealth. She reports that the left ankle has really not been making any significant improvement. She continues to have waxing and waning swelling on the left side (lateral) ankle. During the telehealth appointment I reviewed the left ankle MRI findings that were obtained on 01/13/2025. MRI findings are consistent with a grade 2 sprain of the ATFL and grade 2 3 sprain of the calcaneofibular ligament. I recommended physical therapy for the patient however she has tried this in the past and states that it was not helpful for her. Her plan is to continue resting, icing and anti-inflammatories as needed. There is no surgical intervention recommended at this time. She will follow up with Orthopedics p.r.n., sooner if needed. Coding Level of Care Code Tele Est Pt Level 3 (86822) Diagnoses Ankle sprain J67.987E
--- OUTSIDE RECORDS SUMMARY | 2025-01-28 14:06 | XMS_ITS | Clinical Summary ---
Author Organization [facility] Address [address] [place] [address] Care Team Providers Care Assistant Commissioner Name Role Phone Shadi Munguia MD Primary Care Provider [phone] Allergies No known active allergies Medications No [...] of Treatment Not on file Care Teams Assistant Commissioner Relationship Specialty Start Date End Date Shadi Munguia MD [address] [place] [address] PCP - General Internal Medicine 03/11/22
--- OUTSIDE RECORDS SUMMARY | 2025-01-28 14:06 | XMS_ITS | Clinical Summary ---
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 DO NOT CRUSH OR CHEW 90 capsule 1 01/20/20 25 Active omeprazole (PriLOSEC) [address] capsule TAKE 1 CAPSULE(20 MG) BY MOUTH DAILY. DO NOT CRUSH OR CHEW 30 capsule 12/22/19 25 025 Discontinued Active Problems Problem Noted [...] not JEANNETTE MONET positive 09/18/2017 Centrilobular emphysema ([facility] V24, [facility] V2 8) 09/18/2017 Raynaud phenomenon 06/24/2017 Degenerative arthritis 05/02/2017 Uterine pain 05/02/2017 Overview (08/03/2024): Underwent laparotomy with total abdominal hysterectomy, right salpingo- oophorectomy and left salpingectomy on 05/22/17 for pelvic pain, endometriosis, right hydrosalpinx COPD (chronic obstructive pu lmonary disease) ([facility] V24, [facility] V28) 02/27/2017 Overview (08/03/2024): Alpha-1 low Fibromyalgia [...] 12/13/2024 1:00 PM EDT Consult Gastroenterology - [place] [address] [place] [address] Judie Whittaker NP Dysphagia, unspecified type (Primary Dx) 12/08/2024 12:59 PM EDT - 12/08/2024 11:59 PM EDT Hospital Encounter Radiology Department - [address] [phone] Encounter for screening mammogram for breast cancer Discharge Disposition: Home or Self Care 12/03/2024 Telephone Internal Medicine - [address] [place], [place] [phone] Shadi Munguia MD Faxed Order ([employer] ) 12/02/2024 2:15 PM EDT Anesthesia Event [facility] Endoscopy [address] [place] [phone] Tra Fuchs MD Kriz, Petra, MD 12/02/2024 1:44 PM EDT - 12/02/2024 11:59 PM EDT Hospital Encounter [facility] Endoscopy [address] [place] [phone] Jose Frey MD Colon cancer screening Discharge Disposition: Home or Self Care 11/24/2024 Telephone [facility] Cardiology [facility] [address] [place] [address] Flakita Tenorio MD Appointment (Coronary CTA) 11/17/2024 Telephone Internal [facility] - [facility] [address] [facility] [place], [place] [phone] Shadi Munguia MD Faxed Order ([employer] ) 11/11/2024 10:20 AM EDT Office Visit [facility] Cardiology [facility] [address] [place] [address] Flaktia Tenorio MD Other chest pain (Primary Dx); Left-sided chest pain; Hyperlipidemia, unspecified hyperlipidemia type 11/11/2024 Telephone [facility] Cardiology [facility] [address] [place] [address] Flakita Tenorio MD from Last 3 Months Immunizations Name Administration Dates Next Due Influenza Quadravalent, MDCK , 0.5ml, with preservative (Flucelvax) 6mo and older 02/27/2017 Td Tetanus diptheria (Tdvax) 7yo and older 11/22 Surgical History Surgery Date Site/Laterality Comments CHOLECYSTECTOMY PROCEDURE:CHOLECYSTECTOMY HYSTERECTOMY PROCEDURE:HYSTERECTOMY OTHER SURGICAL HISTORY 03/22/2022 N/A PROCEDURE:PANNICULECTOMY;COMME NT:Procedure: ABDOMINOPLASTY; Surgeon: Saw Giordano MD; Location: [facility] MAIN OPERATING ROOM; Service: Plastics; Laterality: N/A; BREAST SURGERY 03/22/2022 Bilateral PROCEDURE:REDUCTION MAMMAPLASTY;COMMENT:Procedure: BILATERAL BREAST REDUCTION; Surgeon: Saw Giordano MD; Location: [facility] MAIN OPERATING ROOM; Service: Plastics; Laterality: Bilateral; LIPOSUCTION 03/22/2022 Bilateral PROCEDURE:LIPOSUCTION;COMMENT: Procedure: LIPOSUCTION ANTERIOR/POSTERIOR FLANKS; Surgeon: Saw Giordano MD; Location: [facility] MAIN OPERATING ROOM; Service: Plastics; Laterality: Bilateral; CHOLECYSTECTOMY 2012 PROCEDURE: LAPAROSCOPIC CHOLECYSTECT ENDOMETRIAL ABLATION 08/2015 PROCEDURE: ID ENDOMETRIAL ABLTJ THERMAL W/O HYSTEROSCOPIC GUID COLONOSCOPY PROCEDURE: HISTORICAL COLONOSCOPY ESOPHAGOGASTRODUODENOSCOPY PROCEDURE: ID ESOPHAGOGASTRODUODENOSCOPY TRANSORAL DIAGNOSTIC PARTIAL HYSTERECTOMY 7 PROCEDURE: ID SUPRACERVICAL ABDL HYSTER W/WO RMVL TUBE OVARY; COMMENT: left ovary preserved BREAST REDUCTION PROCEDURE: ID BREAST REDUCTION BX BREAST PERC 1ST LES [...] Record ed Within the last 3 months, [place] vivas many times did you visit the emergency [...] for your loved ones. For example, child abuse worker or elderly care for an older adult? [...] 2:30 PM EDT Office Visit Pulmonolgy - [address] [place] [phone] Meme Diaz MD [address] [phone] 02/01/2025 8:15 AM EDT Appointment [facility] Xray [address] [place] [address] 02/16/2025 3:30 PM EDT Ancillary Procedure [facility] - [address] [place] [address] Health Maintenance Due Date Last [...] Screening 10/24/2025 10/24/2024 Breast Cancer Screening 12/08/2026 12/09/19, 02/03/2024, 02/03/2024, Additional history exists Cholesterol Screening [...] Procedure Name Priority Date/Time Associated Diagnosis Comments EXTERNAL MRI REPORT 01/13/2025 MG MAMMO DIGITAL SCREENING W LEONIDES BILAT [...] Recently Relevant to Health Maintenance Results * External MRI Report (01/13/2025) Anatomical Region Laterality Modality Magnetic Resonan ce Provider [facility] IM MRI PROCEDURES Final Result * MG Mammo Digital Screening w Leonides bilat (12/08/2024 1:12 PM EDT) Anatomical Region Laterality Modality Breast Bilateral Mammography 12/09/2024 8:41 AM EDT Impressions 12/09/2024 8:43 AM EDT No mammographic evidence of malignancy. BREAST DENSITY: B - There are scattered areas of fibroglandular density. BI-RADS CATEGORY: 2 - BENIGN RECOMMENDATION: Screening bilateral mammogram is recommended in 1 year. MAMMO LOCATION: [facility], [address] [place] [address], [phone], . -------- FINAL REPORT -------- Dictated By: Brittany Tyson Dictated Date: 12/09/2024 08:41 ET Assigned Physician: Brittany Tsyon Reviewed and Electronically Signed By: Brittany Tyson Signed Date: 12/09/2024 08:43 ET Workstation ID: [id number] Transcribed By: Self Edit Transcribed Date: 12/09/2024 [...] History of a benign left stereotactic core [id number]/03/2024. COMPARISON: 12/03/2023 and 01/14/2022 TECHNIQUE: Bilateral MLO [...] is recommended in 1 year. MAMMO LOCATION: [facility], [address] [place] [address], [phone], . -------- FINAL REPORT -------- Dictated By: Brittany Tyson Dictated Date: 12/09/2024 08:41 ET Assigned Physician: Brittany Tyson Reviewed and Electronically Signed By: Brittany Tyson Signed Date: 12/09/2024 08:43 ET Workstation ID: [id number] Transcribed By: Self Edit Transcribed Date: 12/09/2024 08:41 ET Shadi Munguia MD IMG BI PROCEDURES Final R esult * (ABNORMAL) Lipid panel with reflex to direct LDL (12/08/2024 12:40 PM EDT) Cholesterol 211(H) 0 - 200 mg/dL LAB CHEMISTRY METHOD 12/08/2024 4:58 PM EDT [facility] Triglycerides 87 0 - 150 mg/dL LAB CHEMISTRY METHOD 12/08/2024 4:58 PM EDT [facility] HDL 53 >=40 mg/dL LAB CHEMISTRY METHOD 12/08/2024 4:58 PM EDT [facility] LDL Calculated 141(H) 0 - 100 mg/dL LAB CHEMISTRY METHOD 12/08/2024 4:58 PM EDT [facility] VLDL Cholesterol Alvin 17.4 mg/dL LAB CHEMISTRY METHOD 12/08/2024 4:58 PM EDT [facility] Non HDL Chol. (LDL+VLDL) 158(H) <145 mg/dL LAB CHEMISTRY METHOD 12/08/2024 4:58 PM EDT [facility] Chol/HDL Ratio 4.0 0.0 - 4.4 LAB CHEMISTRY METHOD 12/08/2024 4:58 PM EDT [facility] Blood Venous blood specimen / Unknown Venipuncture / Unknown 12/08/2024 12:40 PM EDT 12/08/2024 12:40 PM EDT Shadi Munguia MD LAB BLOOD ORDERABLES Mima l Result [facility] HOSPITAL LAB [address] [place] [address], * COLONOSCOPY Anesthesia - MAC; [facility] ENDOSCOPY (12/02/2024 2:34 PM EDT) Anatomical Region Laterality Modality Other 12/02/2024 2:09 PM EDT Impressions 12/02/2024 2:35 PM EDT - The entire examined colon is normal on direct and retroflexion views. - No specimens collected. Recommendation: - Repeat colonoscopy in 10 years for screening purposes. Narrative 12/02/2024 2:35 PM EDT [facility] GI Patient Name: Javi Ortiz [...] neoplasm of colon CPT copyright 2020 [employer]. All rights reserved. The codes documented in this report are preliminary and upon groundwater monitoring technician review may be revised to meet current compliance requirements. Jose Frey MD 12/02/2024 2:35:39 PM This report has been signed electronically.Jose Frey MD Number of Addenda: 0 Note Initiated On: 12/02/2024 2:09 PM Scope In: Scope Out: Endoscopy Department at [facility] - [address] [place] [phone] Procedure Note Jose Frey MD - 12/02/2024 [facility] GI Patient Name: Javi Ortiz [...] for malignantneoplasm of colon CPT copyright 2020 [employer]. All rights reserved. The codes documented in this report are preliminary and upon groundwater monitoring technician reviewmay be revised to meet current compliance requirements. Jose Frey MD 12/02/2024 2:35:39 PM This report has been signed electronically.Jose Frey MD Number of Addenda: 0 Note Initiated On: 12/02/2024 2:09 PM Scope In: Scope Out: Endoscopy Department at [facility] - [address] [place] [phone] IMPRESSION: - The entire examined colon is normal on direct and retroflexion views. - No specimens collected. Recommendation: - Repeat colonoscopy in 10 years for screening purposes. Jose Frey MD GI~PROCEDURE ORDERABLES Fin al Result * ECG 12 lead (11/11/2024 10:13 AM EDT) [facility] Ventricular Rate ECG 67 BPM GEMUSE Atrial Rate 67 BPM GEMUSE P-R Interval 120 ms GEMUSE QRS Duration 74 ms GEMUSE Q-T Interval 408 ms GEMUSE QTc 431 ms GEMUSE P Wave [place] 58 degrees GEMUSE R [place] 58 degrees GEMUSE T [place] 39 degrees GEMUSE ECG Interpretation Normal sinus rhythm Nonspecific T wave abnormality Abnormal ECG When compared with ECG of 21-JUL-2019 14:13, No significant change was found Confirmed by FLAKITA TENORIO ([id number]) on 11/11/2024 3:40:04 PM GEMUSE 11/11/2024 10:1 3 AM EDT 11/11/2024 3:40 PM EDT Flakita Tenorio MD ECG ORDERABLES Final Result GEMUSE * Cervical Cancer Screening: HPV (02/25/2017) Pathologist [facility] Cervical Cancer Screening: HPV Abstracted, Negative Historical Provider HEALTH MAINTENANCE Final Result * HIV Screening (02/25/2017) [facility] HIV Screening Abstracted Historical Provider HEALTH MAINTENANCE Final Result * Hepatitis C Screening (02/25/2017) [facility] Hepatitis C Screening Abstracted Historical Provider HEALTH MAINTENANCE Final Result from Last 3 Months or Most Recently Relevant to Health Maintenance Insurance [employer] MEDICARE Member Subscriber Plan / Payer (Ef fective 2024-Present) Name:JAVI ORTIZ Relation to Subscriber:Self Name:Javi Ortiz Payer ID:[id number] Group ID:[id number] Type:Not on file Address: [address] [facility] [phone] Advance Directives Documents on File Type Date Recorded Patient Campus Dean Expl anation Health Care Decision (hx) 05/22/2017 [...] (hx) 05/22/2017 AD PEREZ DIRECTIVE Care Teams Water Filterer Relationship Specialty Start Date End Date Shadi Munguia MD [address] [place] [phone] PCP - General Internal Medicine 08/03/24
== END 2025-01-28 14:24 | disposition home or self-care (01) ==
LOC: HO.HOS 14:04
PROVIDERS: PCP Internal Medicine; Visit Provider Physician Assistant
DX: S93.409A Sprain of unspecified ligament of unspecified ankle, initial encounter (principal)
CPT/HCPCS: 99213